=== PATIENT | male | born 1940 | race Hispanic/Latino ===

== ENCOUNTER 2017-09-27 08:06 | Day surgery (SDC) | payer OTHER ==
[~2017-09-27] VITALS: Ht 162.6 cm; Wt 68.8 kg
[~2017-09-27 08:06] MED LIST: SODIUM CHLORIDE 0.9% 1000ML 1,000 ML IV ONE
[2017-09-27 08:49] LABS: BASOPHILS % (AUTO) 0.8 % (0.0-5.0); EOSINOPHILS % (AUTO) 2.2 % (0.0-8.0); HEMATOCRIT 24.2 % (42-54); MEAN CORPUSCULAR HGB CONC 35.6 g/dL (32.0-36.0); MEAN CORPUSCULAR VOLUME 89.8 fL (79-99); MONOCYTES % (AUTO) 7.7 % (3.0-13.0); NEUTROPHILS % (AUTO) 67.3 % (40.0-77.0); PLATELET COUNT (AUTO) 157 K/uL (130-400); RED CELL DISTRIBUTION WIDTH 16.3 % (11.0-15.5)
[2017-09-27 09:07] VITALS: BP 135/64
[2017-09-27] MEDS ORDERED: PANT40TA25 PO (09:45)
[2017-09-27] MEDS ORDERED: VALS160T28 PO (09:45)
[2017-09-27] MEDS ORDERED: RENEXA PO (09:45)
[2017-09-27] MEDS ORDERED: ISOS30TA6 PO (09:45)
[2017-09-27] MEDS ORDERED: METO-391 PO (09:45)
[2017-09-27] MEDS ORDERED: AMLO5TAB2 PO (09:45)
[2017-09-27] MEDS ORDERED: AMIO100T4 PO (09:45)
[2017-09-27] MEDS ORDERED: PROPOFOL 10 MG/ML 20ML VIAL IV ONE (09:48)
== END 2017-09-27 11:00 | disposition home or self-care (01) ==
LOC: ENDO 08:06 → DAH 08:06 → ENDO 11:00
PROVIDERS: ATTEND Internal Medicine Gastroenterology
DX: K29.70 Gastritis, unspecified, without bleeding (principal); K92.1 Melena; D62 Acute posthemorrhagic anemia; K21.9 Gastro-esophageal reflux disease without esophagitis; I10 Essential (primary) hypertension; I25.10 Atherosclerotic heart disease of native coronary artery without angina pectoris; I48.91 Unspecified atrial fibrillation; E78.5 Hyperlipidemia, unspecified; N40.0 Benign prostatic hyperplasia without lower urinary tract symptoms; Z95.0 Presence of cardiac pacemaker; Z88.8 Allergy status to other drugs, medicaments and biological substances; Z88.1 Allergy status to other antibiotic agents; Z98.890 Other specified postprocedural states
CPT/HCPCS: 36415; 43235; 85025; 93005; A4606; J2704; J7030

== ENCOUNTER 2017-09-28 09:58 | Day surgery (SDC) | payer OTHER ==
[~2017-09-28] VITALS: Ht 160 cm; Wt 70.3 kg
[~2017-09-28 09:58] MED LIST changes: +AMIO100T4 PO; +AMLO5TAB2 PO; +ISOS30TA6 PO; +METO-391 PO; +PANT40TA25 PO; +RENEXA PO; +VALS160T28 PO
[2017-09-28 10:02] VITALS: BP 117/65
[2017-09-28] MEDS ORDERED: PROPOFOL 10 MG/ML 20ML VIAL IV ONE ×2 (10:45→11:11)
[2017-09-28 10:51] LABS: EOSINOPHILS % (AUTO) 1.7 % (0.0-8.0); HEMATOCRIT 24.2 % (42-54); LYMPHOCYTES % (AUTO) 18.5 % (21.0-51.0); MEAN CORPUSCULAR HEMOGLOBIN 30.5 pg (27.0-33.0); MEAN CORPUSCULAR HGB CONC 33.9 g/dL (32.0-36.0); MEAN CORPUSCULAR VOLUME 90.1 fL (79-99); NEUTROPHILS % (AUTO) 71.8 % (40.0-77.0); PLATELET COUNT (AUTO) 150 K/uL (130-400); RED BLOOD CELL COUNT(AUTO) 2.69 MIL/uL (4.50-6.20); RED CELL DISTRIBUTION WIDTH 16.3 % (11.0-15.5); WHITE BLOOD COUNT (AUTO) 4.7 K/uL (4.8-10.8)
[2017-09-28] MEDS ORDERED: PHENYLEPHRINE HCL 10 MG/ML 1ML VIAL IV ONE (10:56)
== END 2017-09-28 12:42 | disposition home or self-care (01) ==
LOC: DAH 09:58 → ENDO 09:58
PROVIDERS: ATTEND Internal Medicine Gastroenterology
DX: K92.1 Melena (principal); K57.30 Diverticulosis of large intestine without perforation or abscess without bleeding; K92.2 Gastrointestinal hemorrhage, unspecified; K31.811 Angiodysplasia of stomach and duodenum with bleeding; K21.9 Gastro-esophageal reflux disease without esophagitis; I10 Essential (primary) hypertension; I25.10 Atherosclerotic heart disease of native coronary artery without angina pectoris; I48.91 Unspecified atrial fibrillation; D64.9 Anemia, unspecified; Z98.890 Other specified postprocedural states; Z95.1 Presence of aortocoronary bypass graft
CPT/HCPCS: 36415; 45378; 44366; 85025; A4606; J2370; J2704 ×2; J7030

== ENCOUNTER 2017-09-29 17:03 | Observation (INO) | payer OTHER ==
[~2017-09-29] VITALS: Ht 162.6 cm; Wt 66.5 kg
[~2017-09-29 17:03] MED LIST changes: -SODIUM CHLORIDE 0.9% 1000ML 1,000 ML IV ONE
[2017-09-29 18:03] LABS: BASOPHILS % (AUTO) 0.6 % (0.0-5.0); EOSINOPHILS % (AUTO) 1.5 % (0.0-8.0); HEMATOCRIT 22.8 % (42-54); LYMPHOCYTES % (AUTO) 21.5 % (21.0-51.0); MEAN CORPUSCULAR HEMOGLOBIN 32.2 pg (27.0-33.0); MEAN CORPUSCULAR HGB CONC 36.3 g/dL (32.0-36.0); MEAN CORPUSCULAR VOLUME 88.9 fL (79-99); MONOCYTES % (AUTO) 8.6 % (3.0-13.0); NEUTROPHILS % (AUTO) 67.8 % (40.0-77.0); NUCLEATED RED BLOOD CELLS 0.1 % (0.0-0.19); PLATELET COUNT (AUTO) 158 K/uL (130-400); RED BLOOD CELL COUNT(AUTO) 2.57 MIL/uL (4.50-6.20); RED CELL DISTRIBUTION WIDTH 16.6 % (11.0-15.5)
[2017-09-29] MEDS ORDERED: 1/2 NORMAL SALINE 1,000 ML IV ONE (21:05)
[2017-09-29 21:29] VITALS: BP 129/76
[2017-09-30] VITALS (21 sets, daily range): BP systolic 109–144; BP diastolic 58–78
[2017-09-30 03:14] LABS: HEMATOCRIT 22.1 % (42-54); MEAN CORPUSCULAR HEMOGLOBIN 29.9 pg (27.0-33.0); MEAN CORPUSCULAR HGB CONC 34.2 g/dL (32.0-36.0); MEAN CORPUSCULAR VOLUME 87.6 fL (79-99); PLATELET COUNT (AUTO) 135 K/uL (130-400); RED BLOOD CELL COUNT(AUTO) 2.52 MIL/uL (4.50-6.20); WHITE BLOOD COUNT (AUTO) 5.2 K/uL (4.8-10.8)
[2017-09-30 03:39] LABS: CREATININE 1.5 mg/dL (0.5-1.5); POTASSIUM 3.8 mmol/L (3.5-5.1)
[2017-09-30] MEDS ORDERED: SODIUM CHLORIDE 0.9% 500ML 500 ML IV SCH (03:45)
[2017-09-30] MEDS ORDERED: SODIUM CHLORIDE 0.9% 500ML 500 ML IV ONE (03:48)
[2017-09-30] MEDS ORDERED: PROPOFOL 10 MG/ML 20ML VIAL IV ONE (10:55)
== END 2017-09-30 16:05 | disposition home or self-care (01) ==
LOC: EDH 17:03 → EDHIP 17:26 → 3AH 20:33
PROVIDERS: ADMIT Internal Medicine; ATTEND Internal Medicine
DX: K55.21 Angiodysplasia of colon with hemorrhage (principal); K31.819 Angiodysplasia of stomach and duodenum without bleeding; K92.1 Melena; D64.9 Anemia, unspecified; I13.0 Hypertensive heart and chronic kidney disease with heart failure and stage 1 through stage 4 chronic kidney disease, or unspecified chronic kidney disease; I50.9 Heart failure, unspecified; N18.9 Chronic kidney disease, unspecified; I48.91 Unspecified atrial fibrillation; I25.10 Atherosclerotic heart disease of native coronary artery without angina pectoris; E78.5 Hyperlipidemia, unspecified; Z79.01 Long term (current) use of anticoagulants; Z87.11 Personal history of peptic ulcer disease; Z95.1 Presence of aortocoronary bypass graft
CPT/HCPCS: 36415 ×2; 36430; 44360; 80048; 85025; 85027; 86850; 86900; 86901; 86922; 99285; G0378 ×23; J2704; J7040; P9016 ×2

== ENCOUNTER 2017-12-24 07:32 | Emergency (ER) | payer OTHER ==
[~2017-12-24 07:32] MED LIST changes: -VALS160T28 PO; +VALS160T29 PO
[2017-12-24] MEDS ORDERED: IPRATROPIUM/ALBUTEROL SULFATE 3 ML SOLUTION IH ONE (08:12)
[2017-12-24 08:37] LABS: BASOPHILS % (AUTO) 0.6 % (0.0-5.0); EOSINOPHILS % (AUTO) 2.7 % (0.0-8.0); HEMATOCRIT 33.9 % (42-54); LYMPHOCYTES % (AUTO) 11.4 % (21.0-51.0); MEAN CORPUSCULAR HEMOGLOBIN 27.9 pg (27.0-33.0); MEAN CORPUSCULAR HGB CONC 34.8 g/dL (32.0-36.0); MEAN CORPUSCULAR VOLUME 80.1 fL (79-99); NEUTROPHILS % (AUTO) 78.3 % (40.0-77.0); PLATELET COUNT (AUTO) 174 K/uL (130-400); RED BLOOD CELL COUNT(AUTO) 4.23 MIL/uL (4.50-6.20); RED CELL DISTRIBUTION WIDTH 16.1 % (11.0-15.5); WHITE BLOOD COUNT (AUTO) 10.7 K/uL (4.8-10.8)
[2017-12-24 08:38] LABS: CREATININE 1.5 mg/dL (0.5-1.5); POTASSIUM 3.7 mmol/L (3.5-5.1)
[2017-12-24 08:52] LABS: CREATINE KINASE MB 2.3 ng/mL (0.5-3.6)
[2017-12-24] MEDS ORDERED: BENZONATATE 100 MG CAPSULE PO ONE (09:27)
== END 2017-12-24 10:20 | disposition home or self-care (01) ==
LOC: EDH 07:32
DX: J01.90 Acute sinusitis, unspecified (principal); R05 Cough; I48.91 Unspecified atrial fibrillation; I25.10 Atherosclerotic heart disease of native coronary artery without angina pectoris; N40.0 Benign prostatic hyperplasia without lower urinary tract symptoms; E78.5 Hyperlipidemia, unspecified; Z88.8 Allergy status to other drugs, medicaments and biological substances; Z79.82 Long term (current) use of aspirin; Z79.899 Other long term (current) drug therapy; Z95.1 Presence of aortocoronary bypass graft
CPT/HCPCS: 36415; 71046; 80048; 82550; 82553; 84484; 85025; 87804; 93005; 94640

== ENCOUNTER → 2019-02-13 | Outpatient (CLI) | payer OTHER ==
[~2019-02-13] MED LIST changes: -AMLO5TAB2 PO; +AMLO5TAB9 PO
== END | disposition home or self-care (01) ==
LOC: SHCH 11:37
PROVIDERS: ATTEND Internal Medicine Cardiovascular Disease
DX: I25.10 Atherosclerotic heart disease of native coronary artery without angina pectoris (principal); I73.9 Peripheral vascular disease, unspecified
CPT/HCPCS: 93925

== ENCOUNTER 2019-04-20 05:51 | Day surgery (SDC) | payer OTHER ==
[2019-04-18 12:39] VITALS: BP 118/70
[2019-04-18 12:50] LABS: BASOPHILS % (AUTO) 0.6 % (0.0-5.0); EOSINOPHILS % (AUTO) 1.7 % (0.0-8.0); HEMATOCRIT 33.7 % (42-54); LYMPHOCYTES % (AUTO) 23.3 % (21.0-51.0); MEAN CORPUSCULAR HEMOGLOBIN 27.3 pg (27.0-33.0); MEAN CORPUSCULAR VOLUME 82.8 fL (79-99); MONOCYTES % (AUTO) 8.4 % (3.0-13.0); PLATELET COUNT (AUTO) 158 K/uL (130-400); RED BLOOD CELL COUNT(AUTO) 4.08 MIL/uL (4.50-6.20); RED CELL DISTRIBUTION WIDTH 15.2 % (11.0-15.5); WHITE BLOOD COUNT (AUTO) 6.8 K/uL (4.8-10.8)
[2019-04-18 12:57] LABS: CREATININE 1.7 mg/dL (0.5-1.5); POTASSIUM 4.2 mmol/L (3.5-5.1)
[2019-04-18 13:00] LABS: INR 1.13 (0.85-1.15); PARTIAL THROMBOPLASTIN TIME 36.2 SEC (26.3-35.5); PROTHROMBIN TIME 11.8 SEC (9.6-11.6)
--- NOTE | 2019-04-19 11:59 | NUR ---
LABS ABNORMAL LABS REPORTED TO DR. OLSON NO FURTHER ORDERS GIVEN.
[~2019-04-20] VITALS: Ht 166.4 cm; Wt 69.9 kg
[2019-04-20] VITALS (9 sets, daily range): BP systolic 105–140; BP diastolic 59–78
[~2019-04-20 05:51] MED LIST changes: -AMIO100T4 PO; +AMIO200T5 PO; +ASPI-555 PO; -METO-391 PO; +METO50TA18 PO; +OMEP-50 PO; -PANT40TA25 PO; +RANO500T3 PO; -RENEXA PO; +RIVA20TA PO
[2019-04-20] MEDS ORDERED: CEFAZOLIN SODIUM 1 GM VIAL ONE (07:26)
[2019-04-20] MEDS ORDERED: LIDOCAINE HCL 1% MDV 50ML VIAL ONE (07:26)
[2019-04-20] MEDS ORDERED: BUPIVACAINE/PF 0.25% 50ML VIAL IJ ONE (07:26)
[2019-04-20] MEDS ORDERED: MIDAZOLAM HCL 1 MG/ML 2ML VIAL ONE ×2 (07:56→08:26)
[2019-04-20] MEDS ORDERED: MEPERIDINE-PF 25 MG/ML SYG ONE ×2 (07:56→08:26)
[2019-04-20] MEDS ORDERED: SODIUM CHLORIDE 0.9% 1000ML 1,000 ML IV SCH (08:00)
[2019-04-20] MEDS ORDERED: CEFAZOLIN SODIUM 1 GM VIAL IVP ONE (08:00)
--- NOTE | 2019-04-20 11:38 | NUR ---
PT. SITE TO THE RIGHT WHERE PM DRESSING IS LOCATED HAD OOZING AND PRESSURE WAS HELD FOR 10 MIN BY EMILIANA BREWER/LIVIER.
== END 2019-04-20 13:30 | disposition home or self-care (01) ==
LOC: DAH 05:51
PROVIDERS: ATTEND Internal Medicine Cardiovascular Disease
DX: Z45.010 Encounter for checking and testing of cardiac pacemaker pulse generator [battery] (principal); I48.0 Paroxysmal atrial fibrillation; I25.10 Atherosclerotic heart disease of native coronary artery without angina pectoris; I44.2 Atrioventricular block, complete; Z88.8 Allergy status to other drugs, medicaments and biological substances; Z79.01 Long term (current) use of anticoagulants; Z79.899 Other long term (current) drug therapy; Z79.82 Long term (current) use of aspirin; Z95.5 Presence of coronary angioplasty implant and graft; Z82.49 Family history of ischemic heart disease and other diseases of the circulatory system; Z83.3 Family history of diabetes mellitus
CPT/HCPCS: 33228; 36415; 80048; 85025; 85610; 85730; A4606; C1785; J0690; J2175 ×2; J2250 ×2; J3490 ×2; 99156; 99157

== ENCOUNTER 2019-10-28 13:44 | Emergency (ER) | payer OTHER ==
[~2019-10-28 13:44] MED LIST changes: -OMEP-50 PO; +OMEP20CA12 PO
[2019-10-28] MEDS ORDERED: IOHEXOL 350 MG/ML 100ML INFUS..BTL IV ONE (14:07)
[2019-10-28 14:26] LABS: BASOPHILS % (AUTO) 0.4 % (0.0-5.0); EOSINOPHILS % (AUTO) 1.2 % (0.0-8.0); HEMATOCRIT 32.2 % (42-54); MEAN CORPUSCULAR HEMOGLOBIN 24.4 pg (27.0-33.0); MEAN CORPUSCULAR HGB CONC 31.1 g/dL (32.0-36.0); MEAN CORPUSCULAR VOLUME 78.5 fL (79-99); NEUTROPHILS % (AUTO) 71.1 % (40.0-77.0); PLATELET COUNT (AUTO) 136 K/uL (130-400); RED CELL DISTRIBUTION WIDTH 15.6 % (11.0-15.5); WHITE BLOOD COUNT (AUTO) 7.4 K/uL (4.8-10.8)
[2019-10-28 14:31] LABS: CREATININE 1.7 mg/dL (0.5-1.5)
[2019-10-28 14:33] LABS: INR 1.09 (0.85-1.15); PROTHROMBIN TIME 11.4 SEC (9.6-11.6)
[2019-10-28 14:36] LABS: ALBUMIN 3.2 g/dL (3.5-5.0); BILIRUBIN,TOTAL 0.3 mg/dL (0.2-1.0)
== END 2019-10-28 19:40 | disposition home or self-care (01) ==
LOC: EDH 13:44
DX: S13.9XXA Sprain of joints and ligaments of unspecified parts of neck, initial encounter (principal); S00.33XA Contusion of nose, initial encounter; S50.11XA Contusion of right forearm, initial encounter; N18.9 Chronic kidney disease, unspecified; I50.9 Heart failure, unspecified; E78.5 Hyperlipidemia, unspecified; I48.91 Unspecified atrial fibrillation; I25.10 Atherosclerotic heart disease of native coronary artery without angina pectoris; W18.39XA Other fall on same level, initial encounter; Y93.01 Activity, walking, marching and hiking; Y92.89 Other specified places as the place of occurrence of the external cause; Y99.8 Other external cause status
CPT/HCPCS: 36415; 70450; 71260; 72125; 73060; 73090 ×2; 73130; 74177; 80053; 82550; 84484; 85025; 85610; 85730; 93005; 99285; Q9967

== ENCOUNTER → 2022-02-10 | Outpatient (CLI) | payer OTHER ==
[~2022-02-10] MED LIST changes: -AMIO200T5 PO; +AMIO200T68 PO; +AMLO-257 PO; -AMLO5TAB9 PO; -ASPI-555 PO; +ASPI-556 PO; -ISOS30TA6 PO; +ISOS30TA92 PO
[2022-02-10 13:01] LABS: CREATININE 1.3 mg/dL (0.5-1.5); DIGOXIN 0.63 ng/mL (0.50-2.00); POTASSIUM 4.3 mmol/L (3.5-5.1)
== END | disposition home or self-care (01) ==
LOC: LAB 10:25
PROVIDERS: ATTEND Physician Assistant
DX: I48.20 Chronic atrial fibrillation, unspecified (principal)
CPT/HCPCS: 36415; 80048; 80162

== ENCOUNTER → 2022-04-19 | Outpatient (CLI) | payer OTHER ==
[2022-04-19 12:40] LABS: CREATININE 1.6 mg/dL (0.5-1.5); DIGOXIN 0.33 ng/mL (0.50-2.00); POTASSIUM 4.3 mmol/L (3.5-5.1)
== END | disposition home or self-care (01) ==
LOC: LAB 11:40
PROVIDERS: ATTEND Physician Assistant
DX: I48.0 Paroxysmal atrial fibrillation (principal); I25.10 Atherosclerotic heart disease of native coronary artery without angina pectoris
CPT/HCPCS: 36415; 80048; 80162

== ENCOUNTER 2023-06-29 08:32 | Emergency (ER) | payer OTHER ==
[~2023-06-29] VITALS: Ht 162.6 cm; Wt 65.8 kg
[~2023-06-29 08:32] MED LIST changes: +CLOP75TA32 PO; +ISOS20TA85 PO; +RIVA15TA PO
[2023-06-29 09:00] LABS: BASOPHILS # (AUTO) 0.04 K/uL (0.00-0.20); BASOPHILS % (AUTO) 0.4 % (0.0-5.0); EOSINOPHILS # (AUTO) 0.24 K/uL (0.00-0.70); EOSINOPHILS % (AUTO) 2.4 % (0.0-8.0); HEMATOCRIT 33.5 % (42-54); IMMATURE GRANULOCYTE ABSOLUTE 0.03 K/uL (0-1); LYMPHOCYTES # (AUTO) 1.4 K/uL (1.0-4.8); LYMPHOCYTES % (AUTO) 13.3 % (21.0-51.0); MEAN CORPUSCULAR HEMOGLOBIN 27.4 pg (27.0-33.0); MEAN CORPUSCULAR HGB CONC 31.3 g/dL (32.0-36.0); MEAN CORPUSCULAR VOLUME 87.5 fL (79-99); MONOCYTES # (AUTO) 0.8 K/uL (0.1-1.0); MONOCYTES % (AUTO) 7.8 % (3.0-13.0); NEUTROPHILS # (AUTO) 7.7 K/uL (1.8-7.7); NEUTROPHILS % (AUTO) 75.8 % (40.0-77.0); PLATELET COUNT (AUTO) 139 K/uL (130-400); RED BLOOD CELL COUNT(AUTO) 3.83 MIL/uL (4.50-6.20); RED CELL DISTRIBUTION WIDTH 15.2 % (11.0-15.5); WHITE BLOOD COUNT (AUTO) 10.2 K/uL (4.8-10.8)
[2023-06-29 09:08] LABS: CREATININE 1.9 mg/dL (0.5-1.5); POTASSIUM 3.7 mmol/L (3.5-5.1)
[2023-06-29 09:13] LABS: BILIRUBIN,TOTAL 0.5 mg/dL (0.2-1.0); TOTAL PROTEIN, SERUM 7.3 g/dL (6.0-8.3)
[2023-06-29 09:24] LABS: SARS-CoV-2, RNA, NAAT NEGATIVE SARS CoV-2 (NEGATIVE)
[2023-06-29 09:29] LABS: INFLUENZA TYPE A Negative For Type A (NEGATIVE); INFLUENZA TYPE B Negative For Type B (NEGATIVE)
[2023-06-29 10:00] VITALS: BP 152/83; PULSE 69; RESP 21; O2SAT 95
[2023-06-29] MEDS ORDERED: PHEN118S62 MM (10:20)
[2023-06-29] MEDS ORDERED: ACET237L PO (10:22)
== END 2023-06-29 10:53 | disposition home or self-care (01) ==
LOC: EDH 08:32
DX: J06.9 Acute upper respiratory infection, unspecified (principal); R05.9 Cough, unspecified; I13.0 Hypertensive heart and chronic kidney disease with heart failure and stage 1 through stage 4 chronic kidney disease, or unspecified chronic kidney disease; E11.22 Type 2 diabetes mellitus with diabetic chronic kidney disease; N18.30 Chronic kidney disease, stage 3 unspecified; I50.9 Heart failure, unspecified; I25.10 Atherosclerotic heart disease of native coronary artery without angina pectoris; I48.91 Unspecified atrial fibrillation; E78.00 Pure hypercholesterolemia, unspecified; Z79.01 Long term (current) use of anticoagulants; Z79.02 Long term (current) use of antithrombotics/antiplatelets; Z79.82 Long term (current) use of aspirin; Z79.899 Other long term (current) drug therapy; Z88.1 Allergy status to other antibiotic agents; Z88.8 Allergy status to other drugs, medicaments and biological substances; Z95.810 Presence of automatic (implantable) cardiac defibrillator; Z20.822 Contact with and (suspected) exposure to COVID-19
CPT/HCPCS: 99284; 71045; 87635; 84484; 80053; 85025; 87804 ×2; 36415; C9803

== ENCOUNTER 2023-11-24 23:18 | Observation (INO) | payer OTHER ==
[~2023-11-24] VITALS: Ht 172.7 cm; Wt 66.1 kg
[~2023-11-24 23:18] MED LIST changes: +ACET237L PO; +PHEN118S62 MM
[2023-11-25] MEDS: ASPIRIN 325MG TAB PO ONE (00:20)
[2023-11-25] MEDS: NITROGLYCERIN 1GM OINT 1 INCH/1GM TD ONE (00:21)
[2023-11-25 00:44] LABS: BASOPHILS # (AUTO) 0.03 K/uL (0.00-0.20); BASOPHILS % (AUTO) 0.5 % (0.0-5.0); EOSINOPHILS # (AUTO) 0.23 K/uL (0.00-0.70); EOSINOPHILS % (AUTO) 3.7 % (0.0-8.0); HEMATOCRIT 30.9 % (42-54); IMMATURE GRANULOCYTE ABSOLUTE 0.01 K/uL (0-1); LYMPHOCYTES # (AUTO) 1.8 K/uL (1.0-4.8); LYMPHOCYTES % (AUTO) 28.3 % (21.0-51.0); MEAN CORPUSCULAR HEMOGLOBIN 27.2 pg (27.0-33.0); MEAN CORPUSCULAR VOLUME 82.4 fL (79-99); MONOCYTES # (AUTO) 0.6 K/uL (0.1-1.0); NEUTROPHILS # (AUTO) 3.7 K/uL (1.8-7.7); NEUTROPHILS % (AUTO) 58.3 % (40.0-77.0); PLATELET COUNT (AUTO) 141 K/uL (130-400); RED BLOOD CELL COUNT(AUTO) 3.75 MIL/uL (4.50-6.20); WHITE BLOOD COUNT (AUTO) 6.3 K/uL (4.8-10.8)
[2023-11-25 01:03] LABS: CREATININE 1.3 mg/dL (0.5-1.5); POTASSIUM 4.6 mmol/L (3.5-5.1)
[2023-11-25] MEDS ORDERED: DEXTROSE 5 %-0.45 % NACL 1,000 ML IV SCH (05:00)
[2023-11-25] MEDS ORDERED: MORPHINE 4 MG SYG IM PRN (05:00)
[2023-11-25] MEDS: ONDANSETRON 4MG INJ IVP PRN (05:19)
[2023-11-25] MEDS: MORPHINE 4 MG SYG IVP PRN (05:23)
[2023-11-25 11:30] VITALS: BP 142/93; PULSE 77; RESP 18; O2SAT 98
[2023-11-25] MEDS ORDERED: ISOS20TA85 PO (12:44)
[2023-11-25 16:00] VITALS: BP 143/90; PULSE 69; RESP 18
[2023-11-25 19:45] VITALS: BP 132/80; PULSE 70; RESP 17
[2023-11-25 20:00] VITALS: O2SAT 94
[2023-11-25 23:43] VITALS: BP 133/80; PULSE 74; RESP 17
[2023-11-26] VITALS (7 sets, daily range): BP systolic 103–136; BP diastolic 61–92; PULSE 67–78; RESP 17–19; O2SAT 93–96
[2023-11-26] MEDS: REGADENOSON 0.4 MG/5 ML PF SYG IVP SCH (13:54)
[2023-11-26] MEDS: ISOSORBIDE MONONITRATE 20 MG TABLET PO SCH (19:55)
[2023-11-26] MEDS: METOPROLOL TARTRATE 50 MG TAB PO SCH (19:56)
[2023-11-26] MEDS: AMIODARONE 200 MG TABLET PO SCH (19:56)
[2023-11-27 02:56] VITALS: BP 120/71; PULSE 70; RESP 18
[2023-11-27 07:54] VITALS: BP 123/84; PULSE 69; RESP 16
[2023-11-27 08:00] VITALS: O2SAT 97
[2023-11-27] MEDS ORDERED: VALSARTAN 160 MG PO SCH (09:00)
[2023-11-27] MEDS: RIVAROXABAN 15 MG TABLET PO SCH (09:00)
[2023-11-27] MEDS: LOSARTAN 100 MG TABLET PO SCH (09:00)
[2023-11-27] MEDS: CLOPIDOGREL 75MG TAB PO SCH (09:00)
[2023-11-27 11:46] VITALS: BP 100/67; PULSE 70; RESP 18
[2023-11-27] MEDS: RANOLAZINE 500 MG TAB.SR.12H PO SCH (12:50)
== END 2023-11-27 13:30 | disposition home or self-care (01) ==
LOC: EDH 23:18 → EDHIP 11-25 04:31 → 3DH 11-25 10:46
PROVIDERS: ADMIT Internal Medicine; ATTEND Internal Medicine
DX: I25.110 Atherosclerotic heart disease of native coronary artery with unstable angina pectoris (principal); I48.0 Paroxysmal atrial fibrillation; K21.9 Gastro-esophageal reflux disease without esophagitis; C61 Malignant neoplasm of prostate; I16.1 Hypertensive emergency; J06.9 Acute upper respiratory infection, unspecified; I13.0 Hypertensive heart and chronic kidney disease with heart failure and stage 1 through stage 4 chronic kidney disease, or unspecified chronic kidney disease; N18.30 Chronic kidney disease, stage 3 unspecified; I50.9 Heart failure, unspecified; I48.91 Unspecified atrial fibrillation; E78.5 Hyperlipidemia, unspecified; D64.9 Anemia, unspecified; B97.89 Other viral agents as the cause of diseases classified elsewhere; Z79.01 Long term (current) use of anticoagulants; Z88.5 Allergy status to narcotic agent; Z95.0 Presence of cardiac pacemaker; Z88.8 Allergy status to other drugs, medicaments and biological substances; Z79.82 Long term (current) use of aspirin; Z95.5 Presence of coronary angioplasty implant and graft
CPT/HCPCS: 71045; 93005; 96374; 96375; 99285; 82550 ×3; 84484 ×4; 80048; 85025; 36415; 93306; 93017; 78452; G0378 ×52; J2405; J2270; J2785; A9500 ×2

== ENCOUNTER 2023-12-21 03:37 | Emergency (ER) | payer OTHER ==
[~2023-12-21 03:37] MED LIST changes: -ACET237L PO; -AMLO-257 PO; -ASPI-556 PO; -ISOS30TA92 PO; -OMEP20CA12 PO; -PHEN118S62 MM; -RANO500T3 PO; -RIVA20TA PO
[2023-12-21] MEDS ORDERED: AMIO100T4 PO (04:05)
[2023-12-21] MEDS ORDERED: ISOS30TA92 PO (04:05)
[2023-12-21] MEDS ORDERED: AMLO-257 PO (04:05)
[2023-12-21] MEDS ORDERED: RIVA15TA PO (04:05)
[2023-12-21] MEDS ORDERED: CLOP-31 PO (04:05)
[2023-12-21 04:08] LABS: BASOPHILS # (AUTO) 0.04 K/uL (0.00-0.20); BASOPHILS % (AUTO) 0.6 % (0.0-5.0); EOSINOPHILS % (AUTO) 4.3 % (0.0-8.0); HEMATOCRIT 31.5 % (42-54); IMMATURE GRANULOCYTE ABSOLUTE 0.02 K/uL (0-1); LYMPHOCYTES # (AUTO) 1.7 K/uL (1.0-4.8); LYMPHOCYTES % (AUTO) 24.8 % (21.0-51.0); MEAN CORPUSCULAR HEMOGLOBIN 26.9 pg (27.0-33.0); MEAN CORPUSCULAR HGB CONC 32.4 g/dL (32.0-36.0); MEAN CORPUSCULAR VOLUME 83.1 fL (79-99); MONOCYTES # (AUTO) 0.6 K/uL (0.1-1.0); MONOCYTES % (AUTO) 8.1 % (3.0-13.0); NEUTROPHILS # (AUTO) 4.4 K/uL (1.8-7.7); NEUTROPHILS % (AUTO) 61.9 % (40.0-77.0); PLATELET COUNT (AUTO) 143 K/uL (130-400); RED BLOOD CELL COUNT(AUTO) 3.79 MIL/uL (4.50-6.20)
[2023-12-21 04:20] LABS: CREATININE 1.6 mg/dL (0.5-1.3); POTASSIUM 3.9 mmol/L (3.5-5.1)
[2023-12-21 04:23] LABS: INR 1.13 (0.85-1.15); PROTHROMBIN TIME 13.2 SEC (9.6-11.6)
[2023-12-21 04:24] LABS: BILIRUBIN,TOTAL 0.4 mg/dL (0.2-1.0); MAGNESIUM 2.3 mg/dL (1.80-2.40); PARTIAL THROMBOPLASTIN TIME 41.6 SEC (26.3-35.5); TOTAL PROTEIN, SERUM 6.7 g/dL (6.0-8.3)
[2023-12-21] MEDS: DICYCLOMINE HCL 10 MG/5 ML ML PO ONE (04:36)
[2023-12-21] MEDS: MAG/ALUM/SIMETH 30 ML UDCUP PO ONE (04:36)
[2023-12-21] MEDS: LIDOCAINE HCL 2% VISCOUS 15 ML UDCUP PO ONE (04:36)
[2023-12-21] MEDS: ACETAMINOPHEN 325 MG TAB PO ONE (04:37)
[2023-12-21] MEDS: NITROGLYCERIN 1GM OINT 1 INCH/1GM TD ONE (04:37)
[2023-12-21] MEDS: PANTOPRAZOLE 40 MG/VIAL IVP ONE (04:51)
[2023-12-21 04:52] LABS: B-TYPE NATRIURETIC PEPTIDE 463 pg/mL (0-100)
[2023-12-21 07:00] VITALS: BP 136/79; PULSE 66; RESP 18; O2SAT 96
[2023-12-23] MEDS ORDERED: RIVA15TA PO (03:12)
[2023-12-23] MEDS ORDERED: ISOS40TA PO (03:12)
[2023-12-23] MEDS ORDERED: AMIO200T68 PO (03:12)
== END 2023-12-21 07:05 | disposition home or self-care (01) ==
LOC: EDH 03:37
DX: R07.89 Other chest pain (principal); R06.02 Shortness of breath; I11.0 Hypertensive heart disease with heart failure; I50.9 Heart failure, unspecified; E78.00 Pure hypercholesterolemia, unspecified; I48.91 Unspecified atrial fibrillation; J44.9 Chronic obstructive pulmonary disease, unspecified; Z79.899 Other long term (current) drug therapy; Z88.1 Allergy status to other antibiotic agents; Z88.8 Allergy status to other drugs, medicaments and biological substances
CPT/HCPCS: 99284; 96374; 71045; 83735; 84484 ×2; 80053; 83880; 85025; 85610; 85730; 36415; 93005; C9113

== ENCOUNTER 2024-02-27 06:10 | Emergency (ER) | payer OTHER ==
[~2024-02-27] VITALS: Ht 160 cm; Wt 65.8 kg
[~2024-02-27 06:10] MED LIST changes: +AMLO-257 PO; +CLOP-31 PO; -CLOP75TA32 PO; -ISOS20TA85 PO; +ISOS40TA PO
[2024-02-27 06:46] LABS: BASOPHILS # (AUTO) 0.03 K/uL (0.00-0.20); BASOPHILS % (AUTO) 0.5 % (0.0-5.0); IMMATURE GRANULOCYTE ABSOLUTE 0.01 K/uL (0-1); LYMPHOCYTES # (AUTO) 1.4 K/uL (1.0-4.8); LYMPHOCYTES % (AUTO) 23.8 % (21.0-51.0); MEAN CORPUSCULAR HEMOGLOBIN 25.6 pg (27.0-33.0); MEAN CORPUSCULAR HGB CONC 32.2 g/dL (32.0-36.0); MEAN CORPUSCULAR VOLUME 79.4 fL (79-99); MONOCYTES # (AUTO) 0.6 K/uL (0.1-1.0); MONOCYTES % (AUTO) 9.8 % (3.0-13.0); NEUTROPHILS # (AUTO) 3.7 K/uL (1.8-7.7); NEUTROPHILS % (AUTO) 60.7 % (40.0-77.0); PLATELET COUNT (AUTO) 134 K/uL (130-400)
[2024-02-27 07:02] LABS: INR 1.13 (0.85-1.15); PROTHROMBIN TIME 13.2 SEC (9.6-11.6)
[2024-02-27 07:03] LABS: CREATININE 2.2 mg/dL (0.5-1.3); POTASSIUM 3.7 mmol/L (3.5-5.1)
[2024-02-27 07:04] LABS: PARTIAL THROMBOPLASTIN TIME 34.8 SEC (26.3-35.5)
[2024-02-27 07:57] VITALS: BP 149/84; PULSE 70; RESP 17; O2SAT 97
[2024-02-27] MEDS ORDERED: DICL20GE TP (09:19)
== END 2024-02-27 09:56 | disposition home or self-care (01) ==
LOC: EDH 06:10
DX: M25.512 Pain in left shoulder (principal); I48.91 Unspecified atrial fibrillation; I11.0 Hypertensive heart disease with heart failure; I50.9 Heart failure, unspecified; E78.00 Pure hypercholesterolemia, unspecified; J44.9 Chronic obstructive pulmonary disease, unspecified
CPT/HCPCS: 36415; 71045; 80048; 83605; 83690; 84145; 84484; 85025; 85610; 85730; 93005

== ENCOUNTER 2024-03-05 05:46 | Emergency (ER) | payer OTHER ==
[~2024-03-05] VITALS: Ht 172.7 cm; Wt 66.7 kg
[~2024-03-05 05:46] MED LIST changes: +DICL20GE TP
[2024-03-05 06:23] LABS: BASOPHILS # (AUTO) 0.04 K/uL (0.00-0.20); BASOPHILS % (AUTO) 0.6 % (0.0-5.0); EOSINOPHILS # (AUTO) 0.23 K/uL (0.00-0.70); EOSINOPHILS % (AUTO) 3.7 % (0.0-8.0); HEMATOCRIT 28.8 % (42-54); IMMATURE GRANULOCYTE ABSOLUTE 0.01 K/uL (0-1); LYMPHOCYTES # (AUTO) 1.5 K/uL (1.0-4.8); LYMPHOCYTES % (AUTO) 23.7 % (21.0-51.0); MEAN CORPUSCULAR HEMOGLOBIN 24.8 pg (27.0-33.0); MEAN CORPUSCULAR HGB CONC 31.6 g/dL (32.0-36.0); MEAN CORPUSCULAR VOLUME 78.5 fL (79-99); MONOCYTES # (AUTO) 0.6 K/uL (0.1-1.0); MONOCYTES % (AUTO) 9.3 % (3.0-13.0); NEUTROPHILS # (AUTO) 3.9 K/uL (1.8-7.7); NEUTROPHILS % (AUTO) 62.5 % (40.0-77.0); PLATELET COUNT (AUTO) 153 K/uL (130-400); RED BLOOD CELL COUNT(AUTO) 3.67 MIL/uL (4.50-6.20); RED CELL DISTRIBUTION WIDTH 15.9 % (11.0-15.5); WHITE BLOOD COUNT (AUTO) 6.2 K/uL (4.8-10.8)
[2024-03-05 06:37] LABS: SARS-CoV-2, RNA, NAAT NEGATIVE SARS CoV-2 (NEGATIVE)
[2024-03-05 06:42] LABS: INFLUENZA TYPE A Negative For Type A (NEGATIVE); INFLUENZA TYPE B Negative For Type B (NEGATIVE)
[2024-03-05 07:17] LABS: B-TYPE NATRIURETIC PEPTIDE 294 pg/mL (0-100)
[2024-03-05 07:42] LABS: CREATININE 1.4 mg/dL (0.5-1.3); POTASSIUM 4.4 mmol/L (3.5-5.1)
[2024-03-05 09:06] LABS: APPEARANCE,URINE CLEAR (CLEAR); BILIRUBIN,URINE NEGATIVE (NEGATIVE); COLOR,URINE COLORLESS (YELLOW); GLUCOSE, URINE (UA) NEGATIVE (NEGATIVE); KETONES,URINE NEGATIVE (NEGATIVE); LEUKOCYTE ESTERASE ,URINE NEGATIVE Leu/uL (NEGATIVE); NITRATE,URINE NEGATIVE (NEGATIVE); PROTEIN,URINE 20 mg/dL (NEGATIVE); UROBILINOGEN,URINE 0.2 mg/dL (0.2-1.0)
[2024-03-05 09:09] LABS: ADD UA MICROSCOPIC YES
[2024-03-05 09:10] LABS: WBC,URINE 0-1 /HPF (0-1)
[2024-03-05 12:37] VITALS: BP 155/88; PULSE 68; RESP 18; O2SAT 96
[2024-03-05] MEDS ORDERED: LACT10SO85 PO (12:52)
== END 2024-03-05 13:25 | disposition home or self-care (01) ==
LOC: EDH 05:46
DX: K57.30 Diverticulosis of large intestine without perforation or abscess without bleeding (principal); N28.1 Cyst of kidney, acquired; K59.00 Constipation, unspecified; I48.91 Unspecified atrial fibrillation; I11.0 Hypertensive heart disease with heart failure; I50.9 Heart failure, unspecified; E78.00 Pure hypercholesterolemia, unspecified; Z20.822 Contact with and (suspected) exposure to COVID-19
CPT/HCPCS: 36415; 71045; 74176; 80048; 81001; 82550; 83880; 84484; 85025; 87635; 87804; 93005

== ENCOUNTER 2024-12-05 05:44 | Emergency (ER) | payer OTHER ==
[~2024-12-05 05:44] MED LIST changes: -AMIO200T68 PO; +APIX2.5T PO; +ASPI-1443 PO; +ATOR40TA71 PO; -CLOP-31 PO; -DICL20GE TP; +METO100T14 PO; +PANT40TA54 PO; -RIVA15TA PO; -VALS160T29 PO
--- NOTE | 2024-12-05 05:55 | ERN ---
ED Note History of Present Illness Stated Complaint: RUQ ABDOMINAL PAIN Chief Complaint: Abdominal Pain Time Seen by MD: 05:45 Dictation: This is an 84-year-old male who came via EMS with abdominal pain in the right lower abd and right side of the abdomen since yesterday. He stated that the pain was mostly in the right upper and flank area radiating to the back. No nausea vomitings diarrhea hematemesis or melena. No constipation. The pain was so intense that he could not sleep and he called EMS to come for evaluation Temperature 98.1 pulse 70 respirations 16 blood pressure 152/74 with a pulse oximetry of 94% on room air His chronic medical problems include atrial fibrillation on apixaban, CAD status post stents, AICD pacemaker, CHF, hypertension, hypercholesterolemia, diverticul osis and history of COPD, renal cysts Allergies: Coded Allergies: cosyntropin (Unverified Allergy, Unknown, 10/28/19) metronidazole (Unverified Allergy, Unknown, 12/23/23) DIARRHEA prednisone (Unverified Allergy, Unknown, RASH, 09/27/17) Home Meds Reported Medications Metoprolol Tartrate (Metoprolol Tartrate) 100 Mg Tablet, 100 MG PO HS, TAB 10/17/24 Aspirin (Aspirin EC) 81 Mg Tablet.dr, 81 MG PO NOON, TAB 10/17/24 Atorvastatin Calcium (Atorvastatin Calcium) 40 Mg Tablet, 40 MG PO NOON, TAB 10/17/24 Pantoprazole Sodium (Pantoprazole Sodium) 40 Mg Tablet.dr, 40 MG PO DAILY, TAB 10/17/24 Apixaban (Eliquis) 2.5 Mg Tablet, 2.5 MG PO BID, TAB 10/17/24 Amlodipine Besylate (Amlodipine Besylate) 5 Mg Tablet, 5 MG PO DAILY, TAB 12/23/23 Isosorbide Dinitrate (Isosorbide Dinitrate) 40 Mg Tablet, 40 MG PO BID, TAB 12/23/23 Metoprolol Tartrate (Metoprolol Tartrate) 50 Mg Tablet, 50 MG PO DAILY, TAB 12/23/23 Past Medical History Past Medical History: A-Fib, CHF, COPD, Diverticulosis, High Cholesterol, Hypertension, Other Additional Past Medical Hx: PACEMAKER Surgical History: Pacer/AICD, Other, None Surgical History Other: CARDIAC STENTS , PROSTATE, PACEMAKER MEDTRONICS Social History: Negative, Lives with family RN Note Reviewed/Agreed w/PFSH: Yes Review of System Dictation Constitutional: Negative for fever,chills, and weight loss Eyes: Negative for injury, pain,redness, and discharge ENT: Negative for injury,pain or swelling Cardiovascular: Negative for chest pain, palpitations, and edema Respiratory: Negative for shortness of breath, cough, and wheezing, Abdomen/GI: Positive for abdominal pain in the right upper quadrant and flank area, nausea, vomiting, diarrhea, and constipation Back: Negative for injury and pain : Negative for injury, bleeding and discharge MS/Extremity: Negative for injury and deformity Skin: Negative for rash, and discoloration Neuro: Negative for headache, weakness, numbness, tingling, and seizure Psych: Negative for suicide ideation, homicidal ideation, and hallucinations Initial Vital Sign VS Vital Signs Date Time Temp Pulse Resp B/P (MAP) Pulse Ox O2 Delivery O2 Flow Rate FiO2 12/05/24 05:45 98.1 70 16 152/74 94 Room Air 0 12/05/24 06:56 21 Physical Exam Dictation General: awake, alert, NAD uncomfortable Head/Face: Normocephalic, atraumatic Eyes: PERRL, EOMI, vision at baseline ENT: oral cavity clear, TMs clear, no signs of infection Neck: Trachea midline, supple, no nuchal rigidity Cardiovascular: RRR, normal S1/S2, No MRGs, no JVD Respiratory: CTAB, no respiratory distress, No rales or wheezes Abdomen: Soft, tenderness in the right upper quadrant flank area, non-distended, normal bowel sounds, no guarding or rebound. Skin: Warm, dry, normal turgor, no rash MS/Extremity: Pulses equal, no cyanosis, neurovascular intact, FROM Neuro: COAx4, GCS 15, strength 5/5, CN 2-12 intact, normal cerebellar exam, normal gait, Psych: Normal behavior, mood, and affect normal Extremities-trace edema without any palpable cords, Homans sign is negative Results (Laboratory/Radiology) Laboratory/Radiology Laboratory Tests Test 12/05/24 05:54 12/05/24 06:07 Urine Color LIGHT-YELLOW (YELLOW) Urine Appearance CLEAR (CLEAR) Urine pH 5.5 (5.0-8.0) Urine Specific [place] 1.007 (1.001-1.031) Urine Protein 70 mg/dL (NEGATIVE) H Urine Glucose (UA) NEGATIVE mg/dL (NEGATIVE) Urine Ketones NEGATIVE mg/dL (NEGATIVE) Urine Occult Blood SMALL (NEGATIVE) H Urine Nitrate NEGATIVE (NEGATIVE) Urine Bilirubin NEGATIVE mg/dL (NEGATIVE) Urine Urobilinogen 0.2 mg/dL (0.2-1.0) Urine Leukocyte Esterase NEGATIVE Al/uL Urine RBC 0-1 /HPF (0-1) Urine WBC 2-5 /HPF (0-1) H Urine Bacteria None /HPF (None Seen) White Blood Count 9.4 K/uL (4.8-10.8) Red Blood Count 3.25 MIL/uL (4.50-6.20) L Hemoglobin 9.1 g/dL (14.0-18.0) L Hematocrit 28.3 % (42-54) L Mean Corpuscular Volume 87.1 fL (79-99) Mean Corpuscular Hemoglobin 28.0 pg (27.0-33.0) Mean Corpuscular Hemoglobin Concent 32.2 g/dL (32.0-36.0) Red Cell Distribution Width 15.7 % (11.0-15.5) H Platelet Count 152 K/uL (130-400) Mean Platelet Volume 10.5 fL (7.5-10.5) Immature Granulocyte % (Auto) 0.5 % (0-1) Neutrophils (%) (Auto) 69.1 % (40.0-77.0) Lymphocytes (%) (Auto) 17.4 % (21.0-51.0) L Monocytes (%) (Auto) 7.6 % (3.0-13.0) Eosinophils (%) (Auto) 5.0 % (0.0-8.0) Basophils (%) (Auto) 0.4 % (0.0-5.0) Neutrophils # (Auto) 6.5 K/uL (1.8-7.7) Lymphocytes # (Auto) 1.6 K/uL (1.0-4.8) Monocytes # (Auto) 0.7 K/uL (0.1-1.0) Eosinophils # (Auto) 0.47 K/uL (0.00-0.70) Basophils # (Auto) 0.04 K/uL (0.00-0.20) Absolute Immature Granulocyte (auto 0.05 K/uL (0-1) Nucleated Red Blood Cells 0.0 % (0.0-0.19) Sodium Level 141 mmol/L (136-145) Potassium Level 3.7 mmol/L (3.5-5.1) Chloride Level 106 mmol/L (101-111) Carbon Dioxide Level 24 mmol/L (21-32) Blood Urea Nitrogen 21 mg/dL (7-18) H Creatinine 1.9 mg/dL (0.5-1.3) H Glomerular Filtration Rate Calc 34 mL/min (>90) Random Glucose 95 mg/dL (70-105) Total Calcium 8.5 mg/dL (8.5-10.1) Total Bilirubin 0.7 mg/dL (0.2-1.0) Aspartate Amino Transf (AST/SGOT) 29 U/L (10-37) Alanine Aminotransferase (ALT/SGPT) 37 U/L (12-78) Alkaline Phosphatase 129 U/L (50-136) Total Protein 6.9 g/dL (6.0-8.3) Albumin 3.2 g/dL (3.5-5.0) L Lipase 102 U/L (16-77) H Labs Reviewed?: Yes EKG Comment: Twelve lead EKG done on 12/05/2024 at 6:10 a.m. showed a heart rate of 69, QRS 159 P wave is hard to discern, QT/QTC 481/517 Impression atrial fibrillation with a ventricular paced rhythm slightly prolonged QT interval. Interpreted by ER MD Dr. Trujillo Ultrasound Comment: Echocardiogram Conclusion LVEF is 50-55%. There is normal LV segmental wall motion. No pericardial effusion. DICTATED BY: TOMA LLOYD MD DATE: 12/25/23 1847 ELECTRONICALLY SIGNED BY: TOMA LLOYD MD DATE: 12/26/[address] Scan Comment: CT abdomen and pelvis- ED Course ED Course Orders Procedure Category Date Status Time Cbc With Differential LAB 12/05/24 Complete 05:47 Comprehensive LAB 12/05/24 Complete Metabolic Panel 05:47 Urinalysis Profile LAB 12/05/24 Complete 05:47 12 Lead Ekg Tracing- EKG 12/05/24 Complete Technical 05:47 0.9%Nacl 1000ml (Ns PHA 12/05/24 In Process 1000ml) 06:00 Chest 1vw RAD 12/05/24 Taken 05:47 Lipase LAB 12/05/24 Complete 05:47 Ct Abdomen/Pelvis W/O CT 12/05/24 Taken Contrast 05:55 Hydromorphone 0.5mg PHA 12/05/24 Complete Syg (Dilaudid 0.5mg 06:30 Ondansetron 4mg Inj PHA 12/05/24 Complete (Zofran 4mg Inj) 06:30 Current Medications Medications (Trade) Dose Ordered Sig/Autumn Route PRN Reason Start Time Stop Time Status Last Admin Dose Admin Hydromorphone HCl (DiLAUDid 0.5MG INJ) 0.5 mg ONCE ONCE IVP 12/05/24 06:30 12/05/24 06:31 DC 12/05/24 06:12 Ondansetron HCl (zoFRAN 4MG INJ) 4 mg ONCE ONCE IVP 12/05/24 06:30 12/05/24 06:31 DC 12/05/24 06:12 Sodium Chloride 1,000 ml @ 125 mls/hr ONCE ONCE IV 12/05/24 06:00 12/05/24 13:59 12/05/24 06:12 Vital Signs Date Time Temp Pulse Resp B/P (MAP) Pulse Ox O2 Delivery O2 Flow Rate FiO2 12/05/24 08:03 98.2 69 12 134/70 94 Room Air* 0 21 12/05/24 06:56 69 18 130/68 95 Room Air* 0 12/05/24 05:45 98.1 70 16 152/74 94 Room Air 0 We will perform diagnostic labs, advanced imaging and administer medications according to the patient's complaint. Once the results are available, will review and personally interpreted the labs to rule out any acute life- threatening emergency the trach require immediate intervention and treatment. I will then re-evaluate the patient after treatment and diagnostic exams have return to determine whether the patient requires any further testing, can safely be discharged home or need further admission to hospital for additional treatment and evaluation. 7:02 a.m. CBC showed a white count of 9.4 hemoglobin of 9.1 platelets 152. His hemoglobin was 10.5 on 10/16/2024 BNP 7 is significant for a BUN and creatinine of 21 and 1.9, lipase is 102. Urinalysis was unremarkable. Chest x-ray chronic interstitial disease changes with some bronchiectasis. CT scan of the abdomen and pelvis results are pending at this time. Medical Decision Making [facility] MDM: Differential diagnosis: Cholecystitis, gastritis, peptic ulcer disease, divert iculosis, hemorrhage into renal cyst, constipation, diverticulitis Medical management and examination interpretation discussions were had by me with other qualified healthcare professionals as indicated for the patient's care. Patient is a 84-year-old gentleman coming in to be evaluated for lower abdominal pain. CT did not disclose acute findings. Patient does have a history of bilateral renal cyst. Patient states that he no longer has a abdominal pain patient will be discharged in stable condition. Problem List Problem List: (1) Right sided abdominal pain (2) Diverticulosis (3) Bilateral renal cysts (4) Constipation DX & DISP Disposition: Discharge Decision to Admit Time: 05:54 Departure Impression: Primary Impression: Bilateral renal cysts Additional Impressions: Constipation, End stage renal disease Condition: Stable Additional Instructions: Patient was informed of all the diagnostic labs and procedures conducted in the emergency room today and demonstrated understanding of the results. I personally reviewed and interpreted all the diagnostic exams performed in the ER today. The patient will be admitted to the hospital for further treatment and evaluation. Disposition-admit to facility Condition-stable/guarded Course-uncertain at this time Pain status-decreased Assessment-exam unchanged Admission Certification- I certify that the patients status is appropriate and is based on my best clinical judgment and the patient's condition as documented in the medical records Referrals: YAZAN BEEBE MD (PCP) DEVORAH TRUJILLO MD Dec 05, 2024 05:55 JUAN OCAMPO MD Dec 05, 2024 10:11
[2024-12-05 06:10] LABS: APPEARANCE,URINE CLEAR (CLEAR); BILIRUBIN,URINE NEGATIVE (NEGATIVE); COLOR,URINE LIGHT-YELLOW (YELLOW); GLUCOSE, URINE (UA) NEGATIVE (NEGATIVE); KETONES,URINE NEGATIVE (NEGATIVE); LEUKOCYTE ESTERASE ,URINE NEGATIVE Leu/uL (NEGATIVE); NITRATE,URINE NEGATIVE (NEGATIVE); OCCULT BLOOD,URINE SMALL (NEGATIVE); PH,URINE 5.5 (5.0-8.0); PROTEIN,URINE 70 mg/dL (NEGATIVE); UROBILINOGEN,URINE 0.2 mg/dL (0.2-1.0)
[2024-12-05 06:11] LABS: ADD UA MICROSCOPIC YES
[2024-12-05 06:12] LABS: RBC,URINE 0-1 /HPF (0-1)
[2024-12-05] MEDS: 0.9%NACL 1000ML 1,000 ML IV ONE (06:12)
[2024-12-05] MEDS: hydroMORPHone 0.5 MG SYG (0.5MG/0.5ML) IVP ONE (06:12)
[2024-12-05] MEDS: ondanSETRON 4MG INJ IVP ONE (06:12)
[2024-12-05 06:18] LABS: BASOPHILS # (AUTO) 0.04 K/uL (0.00-0.20); BASOPHILS % (AUTO) 0.4 % (0.0-5.0); EOSINOPHILS # (AUTO) 0.47 K/uL (0.00-0.70); HEMATOCRIT 28.3 % (42-54); IMMATURE GRANULOCYTE ABSOLUTE 0.05 K/uL (0-1); LYMPHOCYTES # (AUTO) 1.6 K/uL (1.0-4.8); LYMPHOCYTES % (AUTO) 17.4 % (21.0-51.0); MEAN CORPUSCULAR HGB CONC 32.2 g/dL (32.0-36.0); MEAN CORPUSCULAR VOLUME 87.1 fL (79-99); MONOCYTES # (AUTO) 0.7 K/uL (0.1-1.0); MONOCYTES % (AUTO) 7.6 % (3.0-13.0); NEUTROPHILS # (AUTO) 6.5 K/uL (1.8-7.7); NEUTROPHILS % (AUTO) 69.1 % (40.0-77.0); PLATELET COUNT (AUTO) 152 K/uL (130-400); RED BLOOD CELL COUNT(AUTO) 3.25 MIL/uL (4.50-6.20); RED CELL DISTRIBUTION WIDTH 15.7 % (11.0-15.5); WHITE BLOOD COUNT (AUTO) 9.4 K/uL (4.8-10.8)
--- NOTE | 2024-12-05 06:35 | NUR ---
PATIENT AT CT SCAN AT THIS TIME.
[2024-12-05 06:38] LABS: ALBUMIN 3.2 g/dL (3.5-5.0); BILIRUBIN,TOTAL 0.7 mg/dL (0.2-1.0); CREATININE 1.9 mg/dL (0.5-1.3); POTASSIUM 3.7 mmol/L (3.5-5.1); TOTAL PROTEIN, SERUM 6.9 g/dL (6.0-8.3)
--- NOTE | 2024-12-05 06:52 | EKG ---
[facility] Test Date: 2024-12-05 Test Time: 06:10:19 Pat Name: CHRISTINA KNAPP Department: ED Room: Gender: M Cylindrical Mixer: [id number] : [id number] Requested By: DEVORAH CAMILO Order Number: [id number] Reading MD: Fredo Huynh Measurements Intervals Theresa Rate: 69 P: 0 DE: 0 QRS: -71 QRSD: 159 T: 81 QT: 481 QTc: 517 Interpretive Statements Atiral flutter and ventricular-paced rhythm Compared to ECG 10/17/2024 10:35:22 No significant changes Electronically Signed On 12-05-2024 13:26:25 CDT by Fredo Huynh Please click the below link to view image of tracing.
[2024-12-05 10:10] VITALS: BP 127/68; PULSE 67; RESP 14; TEMP 97.8; O2SAT 95
--- NOTE | 2024-12-05 10:15 | HMCIMG ---
CT ABDOMEN WITHOUT CONTRAST. CT PELVIS WITHOUT CONTRAST. INDICATION: Right upper abdominal pain TECHNIQUE: Routine transaxial imaging using 5 mm slice thickness through the abdomen and pelvis without the administration of IV contrast. Thin slice reconstructions are also provided. Coronal and sagittal reformatted images acquired for interpretation. CT was performed with one or more of the following dose reduction techniques: Automated exposure control, adjustment of the mA and/or kV according to patient size, or use of iterative reconstruction technique. COMPARISON: 03/05/2024 FINDINGS: ON NONCONTRAST IMAGING: ABDOMEN: Heart size is normal. Visible lung bases are clear. No abnormal renal calcifications, hydronephrosis, perinephric inflammation, or proximal hydroureter detected. A few simple bilateral renal cysts, largest on the right measuring up to 6.3 cm. The liver is normal in size and smooth in contour without biliary duct dilation. The spleen is normal in size and attenuation. The gallbladder appears normal. The pancreas appears normal without pancreatic duct dilation. The adrenal glands appear normal. No significant abdominal, retrocrural or retroperitoneal adenopathy noted. No evidence for intra-abdominal free air or organized fluid collection. Mild calcific plaque is noted along the abdominal aortic and iliac vessel reagan without aneurysmal dilation. PELVIS: No abnormal calcifications within the urinary bladder or distal ureters. No evidence for free air or organized pelvic fluid collection. No significant pelvic adenopathy detected. Visualized small and large bowel loops appear unremarkable. Terminal ileum appears unremarkable. The appendix appears normal. Slightly enlarged prostate enlargement with TURP defect. Bilateral L5 pars defect with grade 1 slip. Mild thoracolumbar spondylosis includes mild lumbar dextroscoliosis. IMPRESSION: No evidence for any acute intra-abdominal or pelvic process. Additional minor findings, postsurgical changes, and pertinent negatives as reported.
--- NOTE | 2024-12-05 10:19 | HMCIMG ---
PORTABLE CHEST RADIOGRAPH INDICATION: RUQ pain COMPARISON: 10/17/2024 FINDINGS: Right sided pacer and continuous leads remain in customary position. Heart size is normal. Mild calcific plaque is present along the aortic arch reagan. The pulmonary vascularity and mariella appear normal. No abnormal pulmonary parenchymal opacity or consolidation identified. Linear scarring at both lung bases. No significant pleural effusion noted. No pneumothorax detected. IMPRESSION: No radiographic evidence for any acute cardiopulmonary process.
== END 2024-12-05 10:28 | disposition home or self-care (01) ==
LOC: EDH 05:44
DX: N28.1 Cyst of kidney, acquired (principal); K59.00 Constipation, unspecified; I13.2 Hypertensive heart and chronic kidney disease with heart failure and with stage 5 chronic kidney disease, or end stage renal disease; N18.6 End stage renal disease; I48.91 Unspecified atrial fibrillation; E78.00 Pure hypercholesterolemia, unspecified; I50.9 Heart failure, unspecified; J44.9 Chronic obstructive pulmonary disease, unspecified; Z79.01 Long term (current) use of anticoagulants; Z79.899 Other long term (current) drug therapy; Z88.1 Allergy status to other antibiotic agents; Z88.8 Allergy status to other drugs, medicaments and biological substances; Z95.5 Presence of coronary angioplasty implant and graft; Z99.2 Dependence on renal dialysis; Z95.810 Presence of automatic (implantable) cardiac defibrillator
CPT/HCPCS: 99285; 74176; 96374; 71045; 96361; 96375; 80053; 83690; 85025; 81001; 36415; 93005; J1171; J7030; J2405

== ENCOUNTER → 2025-05-15 | Outpatient (CLI) | payer OTHER ==
[~2025-05-15] MED LIST changes: +AEC81 PO; -AMLO-257 PO; -ASPI-1443 PO; +ATOR40TA69 PO; -ATOR40TA71 PO; +CLOP-31 PO; +FERR-72 PO; +ISOS30TA11 PO; -ISOS40TA PO; -METO100T14 PO; +METO25TA6 PO; -METO50TA18 PO; +MULT-1203 PO; +NIFE-40 PO; +NITR0.4T50 SL
--- NOTE | 2025-05-28 08:14 | HMCIMG ---
Right BREAST ULTRASOUND: CLINICAL HISTORY: Mastodynia Finding: Real-time examination of the [right/left] breast demonstrates homogeneous echotexture throughout the breast . Right retro-nipple region there is a hypoechoic lesion seen measuring 1.5 x 0.5 x 1.5 cm. There is right axillary lymph node measuring 1.8 x 0.7 x 1.8 cm. There is a second lymph node measuring 1.2 x 0.8 x 1.0 cm. IMPRESSION: Right retro-nipple region is a hypoechoic lesion. I would recommend diagnostic breast mammogram and this is also amenable for ultrasound-guided biopsy for histological sampling.. FINAL ASSESSMENT: ACR: BI-RAD -0. Incomplete: need additional imaging evaluation. Management: Recall for additional imaging and/or comparison with prior examination(s). Likelihood of Cancer: N/A
== END | disposition home or self-care (01) ==
LOC: RAH 14:37
PROVIDERS: ATTEND Internal Medicine
DX: N64.89 Other specified disorders of breast (principal); N64.4 Mastodynia
CPT/HCPCS: 76641

== ENCOUNTER 2025-07-14 08:14 | Observation (INO) | payer OTHER ==
[~2025-07-14] VITALS: Ht 160 cm; Wt 74.8 kg
--- NOTE | 2025-07-14 08:46 | ERN ---
General Chief Complaint: Chest Pain Stated Complaint: CHEST PAIN Time Seen by MD: 08:17 Source: patient History of Present Illness Initial Comments PATIENT IS A AN 85-YEAR-OLD MALE COMING IN COMPLAINING OF CHEST PAIN EARLIER IN THE MORNING. THE MOMENT IN HIS EVALUATION HE STATES HE DOES NOT HAVE ANY CHEST PAIN. 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 BRIZUELA. Allergies: Coded Allergies: codeine (Unverified Allergy, Unknown, 01/02/25) cosyntropin (Unverified Allergy, Unknown, 10/28/19) metronidazole (Unverified Allergy, Unknown, 12/23/23) DIARRHEA prednisone (Unverified Allergy, Unknown, RASH, 09/27/17) Home Meds Active Scripts Clopidogrel Bisulfate (Plavix) 75 Mg Tablet, 75 MG PO DAILY for 90 Days, #90 TAB Prov:ALEM VINCENT AGACNP 02/19/25 Nifedipine (Nifedipine ER) 30 Mg Tab.er.24, 60 MG PO DAILY for 30 Days, #30 TAB Prov:ALEM VINCENT AGACNP 02/19/25 Atorvastatin Calcium (LIPITOR) 40 Mg Tablet, 40 MG PO HS, #90 TAB Prov:ALEM VINCENT AGACNP 02/19/25 Aspirin (ASPIRIN 81 MG ECTAB) 81 Mg Ectab, 81 MG PO DAILY, #90 TAB.EC 1 Refill Prov:ALEM VINCENT AGACNP 02/19/25 Metoprolol Tartrate (Metoprolol Tartrate) 25 Mg Tablet, 100 MG PO BID for 30 Days, #60 TAB Prov:ALEM VINCENT AGACNP 02/19/25 Reported Medications Multivitamin (Multi Vitamin Daily) 1 Each Tablet, 1 TAB PO HS for 30 Days, #30 TAB 0 Refills 02/17/25 Ferrous Sulfate (Ferrous Sulfate) 325 Mg (65 Mg Iron) Tablet, 1 TAB PO HS for 30 Days, #30 TAB 0 Refills 02/17/25 Nitroglycerin (Nitroglycerin) 0.4 Mg Tab.subl, 1 TAB SL AD for chest pain, #25 TAB 0 Refills 1st sign of attack; may repeat every 5 mins; if pain persists after 3 in 15 min, medical attention is recommended 01/02/25 Isosorbide Dinitrate (Isosorbide Dinitrate) 30 Mg Tablet, 30 MG PO BID, TAB 01/02/25 Pantoprazole Sodium (Pantoprazole Sodium) 40 Mg Tablet.dr, 40 MG PO DAILY, TAB 10/17/24 Apixaban (Eliquis) 2.5 Mg Tablet, 2.5 MG PO BID, TAB 10/17/24 Past Medical History Past Medical History: A-Fib, CAD, COPD, GERD, High Cholesterol, Hypertension, OR Medical History Other: PACEMAKER Past Surgical History: Pacer/AICD Surgical History Other: CARDIAC STENTS , PROSTATE, PACEMAKER MEDTRONICS Social History Social History: Negative, Lives with family ROS Dictation CONSTITUTIONAL: NO CHILLS, NO FEVER, NO WEAKNESS, NO DIAPHORESIS, NO MALAISE. HEAD/FACE: NO SIGNS OF TRAUMA. EENT: NO EYE PAIN, NO BLURRED VISION, NO TEARING, NO DOUBLE VISION, NO EAR PAIN, NO EAR DISCHARGE, NO NOSE PAIN, NO NASAL CONGESTION, NO THROAT PAIN, NO THROAT SWELLING, NO MOUTH PAIN. RESPIRATORY: NO COUGH, NO ORTHOPNEA, NO SOB, NO STRIDOR, NO WHEEZING. CARDIOVASCULAR: NO CHEST PAIN, NO EDEMA, NO PALPITATIONS, NO SYNCOPE. GASTROINTESTINAL/ABDOMINAL: NO ABDOMINAL PAIN, NO CONSTIPATION, NO DIARRHEA, NO NAUSEA, NO VOMITING. GENITOURINARY: NO ABNORMAL DISCHARGE, NO DYSURIA, NO FREQUENT URINATION, NO HEMATURIA. NO COMPLAINTS OF PAIN IN THE GENITALS. MUSCULOSKELETAL: NO BACK PAIN, NO GOUT, NO JOINT PAIN, NO JOINT SWELLING, NO MUSCLE PAIN, NO MUSCLE STIFFNESS, NO NECK PAIN. INTEGUMENTARY: NO CHANGE IN COLOR, NO CHANGE IN HAIR/NAILS, NO DRYNESS, NO LESION, NO LUMPS, NO RASH. NEUROLOGICAL/PSYCH: NO ANXIETY, NOT DEPRESSED, NO EMOTIONAL PROBLEM, NO HEADACHE, NO NUMBNESS, NO PRE-EXISTING DEFICIT, NO HISTORY OF SEIZURES, NO TREMORS, NO WEAKNESS. HEMATOLOGIC/LYMPHATIC: NOT ANEMIC, NO HISTORY OF BLOOD CLOTS, NO APPARENT BLEEDING, NO BRUISING, GLANDS NOT SWOLLEN. ALL SYSTEMS NEGATIVE, EXCEPT NOTED. Physical Exam Physical Exam Dictation VITAL SIGNS: REVIEWED. GENERAL APPEARANCE: ALERT, ORIENTED X3, NO ACUTE DISTRESS, OBESE. HEAD AND FACE: NON-TRAUMATIC. EYES: PERRL, PINK CONJUNCTIVAS, EYELID NO TRAUMA, ANTERIOR CHAMBER CLEAR. EARS: PINNAS INTACT AND NO SIGNS OF TRAUMA OR ERYTHEMA. EAR CANALS CLEAR AND NO DISCHARGE. TMS NO ERYTHEMA. NOSE: NO DISCHARGE, NO BLEEDING. OROPHARYNX: MOUTH NORMAL, TEETH NO CARIES, TONGUE PINK. PHARYNX CLEAR, NO ERYTHEMA. TONSILS NO EXUDATES, NO ABSCESSES NOTED. MUCOUS MEMBRANE MOIST. NECK: SUPPLE, NON-TENDER, NO THYROMEGALY, NO MASSES, NO JVD, NO BRUITS. BREAST: DEFERRED. CHEST: NO TENDERNESS, NO CREPITUS, NO PARADOXICAL MOVEMENT, NO RETRACTIONS. LUNGS: CLEAR, WELL-VENTILATED, SYMMETRIC, NO RALES, NO WHEEZING, NO RHONCHI, NO STRIDOR, GOOD BREATH SOUNDS BILATERALLY. HEART: REGULAR RATE, REGULAR RHYTHM, NO MURMUR, NO GALLOPS. VASCULAR: NO PERIPHERAL EDEMA. ABDOMEN: SOFT, POSITIVE BOWEL SOUNDS, NONDISTENDED, NO GUARDING, NONTENDER, NO REBOUND, NO MASSES NO HEPATOMEGALY, NO SPLENOMEGALY, NO BRITT'S SIGN, NO HERNIAS. RECTAL: DEFERRED. GENITAL: DEFERRED. NEUROLOGICAL: NORMAL SPEECH, GROSS MOTOR FUNCTION INTACT, GROSS SENSORY FUNCTION INTACT. MUSCULOSKELETAL: NECK NONTENDER, FULL RANGE OF MOTION, BACK NONTENDER, FULL RANGE OF MOTION. EXTREMITIES: NONTENDER, FULL RANGE OF MOTION. SKIN: COLOR PINK, DRY, NO TURGOR, NO RASH, NO LACERATIONS, NO ABRASIONS, NO CONTUSIONS. LYMPHATICS: DEFERRED. Results Laboratory and Microbiology Lab and Micro Result Laboratory Tests Test 07/14/25 09:16 07/14/25 10:06 White Blood Count 6.4 K/uL (4.8-10.8) Red Blood Count 3.77 MIL/uL (4.50-6.20) L Hemoglobin 10.9 g/dL (14.0-18.0) L Hematocrit 31.5 % (42-54) L Mean Corpuscular Volume 83.6 fL (79-99) Mean Corpuscular Hemoglobin 28.9 pg (27.0-33.0) Mean Corpuscular Hemoglobin Concent 34.6 g/dL (32.0-36.0) Red Cell Distribution Width 14.6 % (11.0-15.5) Platelet Count 125 K/uL (130-400) L Mean Platelet Volume 11.1 fL (7.5-10.5) H Immature Granulocyte % (Auto) 0.2 % (0-1) Neutrophils (%) (Auto) 62.5 % (40.0-77.0) Lymphocytes (%) (Auto) 25.6 % (21.0-51.0) Monocytes (%) (Auto) 8.1 % (3.0-13.0) Eosinophils (%) (Auto) 3.0 % (0.0-8.0) Basophils (%) (Auto) 0.6 % (0.0-5.0) Neutrophils # (Auto) 4.0 K/uL (1.8-7.7) Lymphocytes # (Auto) 1.6 K/uL (1.0-4.8) Monocytes # (Auto) 0.5 K/uL (0.1-1.0) Eosinophils # (Auto) 0.19 K/uL (0.00-0.70) Basophils # (Auto) 0.04 K/uL (0.00-0.20) Absolute Immature Granulocyte (auto 0.01 K/uL (0-1) Nucleated Red Blood Cells 0.0 % (0.0-0.19) Sodium Level 147 mmol/L (136-145) H Potassium Level 3.9 mmol/L (3.5-5.1) Chloride Level 111 mmol/L (101-111) Carbon Dioxide Level 29 mmol/L (21-32) Blood Urea Nitrogen 36 mg/dL (7-18) H Creatinine 2.1 mg/dL (0.5-1.3) H Glomerular Filtration Rate Calc 30 mL/min (>90) Random Glucose 106 mg/dL (70-105) H Total Calcium 8.8 mg/dL (8.5-10.1) Magnesium Level 2.60 mg/dL (1.80-2.40) H Troponin I High Sensitivity 31 ng/L (4-75) 26 ng/L (4-75) Labs Reviewed?: Yes EKG/XRAY/US/CT/MRI EKG Comment 07/14/2025 TIME 8:36 A.M. VENTRICULAR RATE [address] WAVE ELEVATION OR DEPRESSION X-RAY Comment Signed PATIENT: CHRISTINA KNAPP MR#: [id number] : 1940 SEX: M AGE: 85 LOCATION: [facility] ORDER DT: 10817 STATUS: REG ER REPORT#: [id number] SERVICE 6 REASON: CP ORDERING PHYSICIAN: JUAN OCAMPO MD PROCEDURE: CXR1VW - CHEST 1VW EXAM: CR Chest, 1 View. CLINICAL HISTORY: CP COMPARISON: None provided. FINDINGS: LUNGS: The lungs show no infiltrate or other acute finding. PLEURAL SPACES: No evidence of pleural effusion or pneumothorax. MEDIASTINUM: Pacemaker leads overlie the right atrium and both ventricles. The cardiomediastinal silhouette is within normal limits. BONES: No aggressive appearing osseous lesion seen. IMPRESSION: No acute cardiopulmonary pathology is evident. /[place] DICTATED BY: RON ST Jr., MD DATE: 07/14/251103 ELECTRONICALLY SIGNED BY: RON ST Jr., MD DATE: 07/14/251103 [facility] MDM: DIFFERENTIAL DIAGNOSIS: ATRIAL FIBRILLATION, HYPONATREMIA, WORSENING KIDNEY FUNCTION RATIONALE: TESTS CONSIDERED AND ORDERED SECONDARY TO SHARED DECISION MAKING INCLUDE: PREVIOUS OUTSIDE RECORDS REVIEWED: OLD ER VISITS. RISK OF COMPLICATION AND/OR MORBIDITY OR MORTALITY OF PATIENT MANAGEMENT: NONE MEDICATIONS-PER MEDICATION RECONCILIATION NEED FOR HOSPITALIZATION: PATIENT DOES MEET CRITERIA FOR HOSPITALIZATION. NEED FOR EMERGENCY MAJOR/MINOR SURGERY: NO THERE ARE NO SOCIAL CONCERNS WITH THIS PATIENT. PRESCRIPTION DRUG MANAGEMENT PRESCRIPTIONS WILL INCLUDE SYMPTOMATIC CARE PATIENT'S PRIOR EXTERNAL MEDICAL RECORDS FROM OTHER ER VISITS WERE REVIEWED BY ME INDICATED. PRIOR TESTING AND RESULTS FROM PREVIOUS VISITS WERE REVIEWED. PRIOR TESTS WERE TAKEN INTO ACCOUNT WITH MEDICAL DECISION MAKING AND RESOURCE UTILIZATION, INDEPENDENT HISTORIAN/HISTORIANS WERE USED TO OBTAIN COMPLETE MEDICAL HISTORY. I INDEPENDENTLY INTERPRETED THE TEST THAT WERE PERFORMED, RESULTS WERE REVIEWED BY ME AND CONSIDERED FINDINGS ON RADIOLOGY IF ORDERED. MEDICAL MANAGEMENT AND EXAMINATION INTERPRETATION DISCUSSIONS WERE HAD BY ME WITH OTHER QUALIFIED HEALTHCARE PROFESSIONALS INDICATED FOR THE PATIENT'S CARE. HE WILL BE ADMITTED UNDER THE CARE OF . ED Course Orders Procedure Category Date Status Time Cbc With Differential LAB 07/14/25 Complete 08:17 Chest 1vw RAD 07/14/25 Resulted 08:17 12 Lead Ekg Tracing- EKG 07/14/25 Complete Technical 08:17 Magnesium LAB 07/14/25 Complete 08:17 Troponin I High LAB 07/14/25 Complete Sensitivity 08:17 Basic Metabolic Panel LAB 07/14/25 Complete 08:17 Troponin I High LAB 07/14/25 Complete Sensitivity 09:59 B-Type Natriuretic LAB 07/14/25 Transmitted Peptide 10:38 Vital Signs Date Time Temp Pulse Resp B/P (MAP) Pulse Ox O2 Delivery O2 Flow Rate FiO2 07/14/25 09:30 97.9 95 17 141/79 98 Room Air* 0 21 07/14/25 08:27 97.9 69 15 134/75 98 Room Air 0 DX & DISP Disposition: Inpatient Decision to Admit Time: 10:41 Departure Impression: Primary Impression: EULOGIO (acute kidney injury) Additional Impressions: Hypernatremia, Chest pain due to CAD Condition: Stable Referrals: YAZAN BEEBE MD (PCP) JUAN OCAMPO MD Jul 14, 2025 08:46
--- NOTE | 2025-07-14 08:50 | EKG ---
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
[2025-07-14 09:27] LABS: IMMATURE GRANULOCYTE ABSOLUTE 0.01 K/uL (0-1); NUCLEATED RED BLOOD CELLS 0.0 % (0.0-0.19); PLATELET COUNT (AUTO) 125 K/uL (130-400); RED BLOOD CELL COUNT(AUTO) 3.77 MIL/uL (4.50-6.20); RED CELL DISTRIBUTION WIDTH 14.6 % (11.0-15.5); WHITE BLOOD COUNT (AUTO) 6.4 K/uL (4.8-10.8)
[2025-07-14 09:35] LABS: CREATININE 2.1 mg/dL (0.5-1.3); GLOMERULAR FILTR. RATE CALC 30.0 mL/min (>90); GLUCOSE,RANDOM 106.0 mg/dL (70-105); SODIUM SERUM 147.0 mmol/L (136-145); UREA NITROGEN, BLOOD 36.0 mg/dL (7-18)
--- NOTE | 2025-07-14 10:04 | HMCIMG ---
EXAM: CR Chest, 1 View. CLINICAL HISTORY: CP COMPARISON: None provided. FINDINGS: LUNGS: The lungs show no infiltrate or other acute finding. PLEURAL SPACES: No evidence of pleural effusion or pneumothorax. MEDIASTINUM: Pacemaker leads overlie the right atrium and both ventricles. The cardiomediastinal silhouette is within normal limits. BONES: No aggressive appearing osseous lesion seen. IMPRESSION: No acute cardiopulmonary pathology is evident. /[place]
[2025-07-14] MEDS ORDERED: PoTASSium chloRIDE 20MEQ ER 20 MEQ ERTAB PO PRN ×2 (11:30)
[2025-07-14] MEDS ORDERED: PoTASSium chl 10% ELIXIR 20MEQ 20 MEQ/15 ML UDCUP PO PRN ×2 (11:30)
[2025-07-14] MEDS ORDERED: MAGNESIUM 2GM PREMIX 50ML 50 ML IV PRN (11:30)
[2025-07-14] MEDS: DEXTROSE 5 %-0.45 % NACL 1,000 ML IV SCH (11:35)
--- NOTE | 2025-07-14 11:43 | NUR ---
cardio consult arabella called pend call back
--- NOTE | 2025-07-14 11:53 | NUR ---
EKG TO BE COMPLETED Q 4 HRS X 3 STARTING 1500
[2025-07-14] MEDS ORDERED: CARV12.511 PO (12:04)
[2025-07-14] MEDS ORDERED: FAMO-290 PO (12:06)
[2025-07-14] MEDS ORDERED: ROSU20TA98 PO (12:08)
--- NOTE | 2025-07-14 12:09 | NUR ---
HOME MEDS ENTERED
--- NOTE | 2025-07-14 14:26 | CONS ---
[facility] CARDIOLOGY CONSULTATION NOTE Date Patient Seen: Jul 14, 2025 Time of Visit: 14:23 Requesting Physician: FEDE Clay Reason for Consultation: Chest pain Primary Smoking Tobacco Cutter Operator: Darrell Osullivan MD History of Present Illness: The patient is an 85-year-old male with past medical history of coronary artery disease, with WAYNE placement to the RCA and LAD done in January of 2021, repeat coronary angiogram done on 10/19/2024 identified mild to moderate nonobstructive CAD, with moderate ISR in the RCA, treated conservatively with medical therapy, repeat coronary angiogram done on 01/02/2025 identified severe ISR in the RCA (stent undersize) status post successful IVUS guided intravascular lithotripsy, balloon angioplasty, and drug coated balloon angioplasty (4 x 30 mm). He was admitted in February of 2025 with chest pain, ACS ruled out and symptoms determined to be secondary to uncontrolled hypertension. He also has a history of paroxysmal atrial fibrillation chronic anticoagulation with renally dosed Eliquis which was recently discontinued due to GI bleeding at [facility] in June 2025, conduction system disorder with history of dual-chamber permanent pacemaker placement, obstructive sleep apnea, chronic kidney disease stage 3, now normal left ventricular systolic function with an EF of 50-55% by prior echocardiogram in December 2023. He presented to [facility] Emergency Department with documented complaints of "chest pain", however he states his main concern is dizziness. He was recently discharged from [facility] (07/10-) with chest pain felt secondary to hypertension. His medications were adjusted with addition of carvedilol 12.5 mg PO BID in replacement of metoprolol succinate 50mg PO BID, and increase of nifedipine ER to 60mg total daily dosing. He notes blood pressures were 110-120s however with all day dizziness yesterday described as sensation of room spinning. He had SBP up to 180s this AM with worsening of the dizziness, and did describe mild 2-3/10 severity chest pain concomitantly. High sensitivity troponins negative x2, EKG shows V paced rhythm. He did not take nitroglycerin at home. He is chest pain free. Past Medical History: Coronary artery disease, history of coronary stenting, paroxysmal atrial fibrillation on chronic anticoagulation, history of congestive heart failure, history of permanent pacemaker implantation for sick sinus syndrome, history of prostate carcinoma, anemia, gastritis, obstructive sleep apnea, stage III chronic kidney [facility] 2022 and November 2023 with normal perfusion Echocardiogram May 2023 with LVEF of 50-55%, stage III diastolic dysfunction, [id number] dilated left atrium, repeat echo December 2023 with EF 50-55% High-resolution chest CT December 2023 bilateral pulmonary infiltrates in setting of atelectasis, interstitial fibrosis with bronchiectasis Lower extremity edema secondary to amlodipine 4 mm left lower lobe nodule, 1 cm right adrenal nodule and a 7 cm right renal cyst by CTA chest at [facility] (June 2025) GI bleed, DOAC Eliquis discontinued June 2025 Past Surgical History: Left heart catheterization January 2021 with 20% InStent RCA stenosis, 40% om stenosis, patent stents along the LAD with an 80% 2nd diagonal Permanent pacemaker implantation (WiFi Railronik Eluna 8 DR-T), last interrogation 06/20/2025 with an ET/AFib burden of 100%, controlled V rate, battery 35% remaining EGD on 04/26/2025 revealed a small 2 cm hiatal hernia, mild scattered gastritis s/p biopsies from antrum/body with normal duodenum that was biopsied. Colonoscopy on 04/26/2025 revealed severe diverticulosis in the entire colon with suspected diverticular bleeding, 3 mm ascending polyp s/p excisional biopsy. TURP Cataract surgery Family History: Hypertension Social History: lives with his spouse, independent with ambulation. The patient denies alcohol, tobacco, or illicit drug use.. Home Meds: Integra 62.5-62.5-40-3 MG Capsule 1 capsule between meals Orally Once a day. Doxycycline. NIFEdipine 20 MG Capsule as directed Orally. Clopidogrel Bisulfate 75 MG Tablet 1 tablet Orally Once a day. Pantoprazole Sodium 40 MG Tablet Delayed Release 1 tablet 1/2 to 1 hour before morning meal Orally Once a day. Eliquis 2.5 MG Tablet 1 tablet Orally Twice a day. Isosorbide Mononitrate ER 30 MG Tablet Extended Release 24 Hour 1 tablet in the morning Orally twice a day. Current Meds: Current Medications Medications Dose Ordered Sig/Autumn Start Time Stop Time Status Last Admin Dextrose/Sodium Chloride 1,000 ml @ 75 mls/hr [id number] 07/14/25 11:30 08/13/25 11:29 07/14/25 11:35 Potassium Chloride 100 ml @ 100 mls/hr AD PRN 10/26/25 11:30 08/13/25 11:29 Potassium Chloride 10 meq AD PRN 07/14/25 11:30 08/13/25 11:29 Potassium Chloride 10 meq AD PRN 07/14/25 11:30 08/13/25 11:29 Potassium Chloride 100 ml @ 100 mls/hr AD PRN 07/14/25 11:30 08/13/25 11:29 Potassium Chloride 20 meq AD PRN 07/14/25 11:30 08/13/25 11:29 Potassium Chloride 20 meq AD PRN 07/14/25 11:30 08/13/25 11:29 Magnesium Sulfate 50 ml @ 0 mls/hr PROTOCOL PRN 07/14/25 11:30 08/13/25 11:29 Review of Systems: dizziness, chest pain. Denies shortness of breath, orthopnea, PND lower extremity edema. No bleeding or bruising. No vision changes. No presyncope. No palpitations. Physical Examination: GENERAL: [No acute distress, acute and alert elderly male NECK: [Normal carotid upstrokes without bruits.] LUNGS: [Clear breath sounds bilaterally. On room air. No crackles. No wheezes, or rhonchi.] HEART: [Normal rate and rhythm. Normal S1 and S2 without murmurs, gallop or rub.] VASC: [Peripheral pulses +2 bilaterally.] ABD: [Soft, nontender, nondistended EXT: [No cyanosis or edema.] SKIN: [Warm, dry] NEURO: [Awake, alert, and oriented x3. No focal sensory or strength deficits noted.] Vital Signs (last 8hr) Date Time Temp Pulse Resp B/P (MAP) Pulse Ox O2 Delivery O2 Flow Rate FiO2 07/14/25 13:50 98.2 76 16 148/77 98 Room Air* 0 07/14/25 11:22 97.9 78 17 148/80 98 Room Air* 0 07/14/25 09:30 97.9 95 17 141/79 98 Room Air* 0 07/14/25 08:27 97.9 69 15 134/75 98 Room Air 0 Laboratory: [ ] Hematology Labs: Test 07/14/25 09:16 Range/Units White Blood Count 6.4 4.8-10.8 K/uL Red Blood Count 3.77 L 4.50-6.20 MIL/uL Hemoglobin 10.9 L 14.0-18.0 g/dL Hematocrit 31.5 L 42-54 % Mean Corpuscular Volume 83.6 79-99 fL Mean Corpuscular Hemoglobin 28.9 27.0-33.0 pg Mean Corpuscular Hemoglobin Concent 34.6 32.0-36.0 g/dL Red Cell Distribution Width 14.6 11.0-15.5 % Platelet Count 125 L 130-400 K/uL Mean Platelet Volume 11.1 H 7.5-10.5 fL Immature Granulocyte % (Auto) 0.2 0-1 % Neutrophils (%) (Auto) 62.5 40.0-77.0 % Lymphocytes (%) (Auto) 25.6 21.0-51.0 % Monocytes (%) (Auto) 8.1 3.0-13.0 % Eosinophils (%) (Auto) 3.0 0.0-8.0 % Basophils (%) (Auto) 0.6 0.0-5.0 % Neutrophils # (Auto) 4.0 1.8-7.7 K/uL Lymphocytes # (Auto) 1.6 1.0-4.8 K/uL Monocytes # (Auto) 0.5 0.1-1.0 K/uL Eosinophils # (Auto) 0.19 0.00-0.70 K/uL Basophils # (Auto) 0.04 0.00-0.20 K/uL Absolute Immature Granulocyte (auto 0.01 0-1 K/uL Nucleated Red Blood Cells 0.0 0.0-0.19 % Chemistry Labs: Test 07/14/25 10:06 07/14/25 09:16 Range/Units Troponin I High Sensitivity 26 4-75 ng/L Sodium Level 147 H 136-145 mmol/L Potassium Level 3.9 3.5-5.1 mmol/L Chloride Level 111 101-111 mmol/L Carbon Dioxide Level 29 21-32 mmol/L Blood Urea Nitrogen 36 H 7-18 mg/dL Creatinine 2.1 H 0.5-1.3 mg/dL Glomerular Filtration Rate Calc 30 >90 mL/min Random Glucose 106 H 70-105 mg/dL Total Calcium 8.8 8.5-10.1 mg/dL Magnesium Level 2.60 H 1.80-2.40 mg/dL B-Type Natriuretic Peptide 136 H 0-100 pg/mL Diagnostics / Radiology: IMPRESSION: No acute cardiopulmonary pathology is evident. /[place] DICTATED BY: RON ST Jr., MD DATE: 07/14/25 1104 Assessment: Dizziness Chest pain in setting of hypertensive urgency Coronary artery disease, left heart catheterization in December 2024 severe RCA ISR status post IVL/PRA/DCB pAF on chronic AC, DOAC Eliquis discontinued due to GI bleeding (June 2025) Sick sinus syndrome s/p DC Biotronik PPM, less interrogation 06/2025 normal device function CHANDRA Frequent hospitalizations for chest pain ([facility] October, April, June 2025) History of edema on amlodipine, dizziness with ranolazine Plan: Recent change to carvedilol 12.5 mg PO BID in replacement of metoprolol succinate 50mg PO BID, and increase of nifedipine ER to 60mg total daily dosing with resultant dizziness. He reports feeling better on lower dose nifedipine. Reports ambulatory BPs range 110s to 180s over prior 2 days. Recommend we obtain orthostatic vital signs and if negative, resume the carvedilol however reduce nifedipine dosage. Continuation of the imdur 60mg TDD. Continuation of his home DAPT with aspirin and clopidogrel Defer DOAC due to recent GI bleed June 2025 SEAN GUILLAUME DO Jul 14, 2025 14:26
--- NOTE | 2025-07-14 16:33 | EKG ---
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
--- NOTE | 2025-07-14 16:49 | NUR ---
[facility] currently unavailable
[2025-07-14 17:29] VITALS: O2SAT 96
[2025-07-14 17:30] VITALS: BP 166/75; PULSE 74; RESP 18; TEMP 97.6
[2025-07-14 20:00] VITALS: BP 175/89; PULSE 70; RESP 20; TEMP 97.6
[2025-07-14 20:31] VITALS: BP_SYST 174; BP_SYST 179; BP_SYST 182; BP_DIAS 90; BP_DIAS 96; BP_DIAS 98; PULSE 69; RESP 20; TEMP 97.6
[2025-07-15] VITALS: BP_SYST 157; BP_SYST 159; BP_DIAS 88; BP_DIAS 95; PULSE 105; PULSE 70; RESP 18; TEMP 97.8; TEMP 98.5
[2025-07-15 04:00] VITALS: BP 170/89; PULSE 89; RESP 18; TEMP 98
--- NOTE | 2025-07-15 04:00 | HP ---
ADMITTING HISTORY AND PHYSICAL CHIEF COMPLAINT: Dizziness. Chest pain. HISTORY OF PRESENT ILLNESS: He is an 85-year-old gentleman, has a history of coronary artery disease with stent placements done starting in 2020. The patient has multiple cardiac caths including the recent one is 01/02/2025. The patient's metoprolol was changed to carvedilol and nifedipine was increased to 60 mg recently. The patient describes increasing dizziness and the patient's blood pressure is fluctuating. The patient is also complaining of varying blood pressures. The patient is hospitalized with dizziness, chest pain with history of coronary artery disease for further cardiac workup. PAST MEDICAL HISTORY: Significant for as above, history of coronary artery disease, atrial fibrillation, congestive heart failure, anemia, gastritis, COPD, sleep apnea, chronic kidney disease, history of prostate cancer. PAST SURGICAL HISTORY: Significant for TURP, cataract surgery and cardiac catheterization and stent placements. SOCIAL HISTORY: No history of smoking, alcohol, substance use. FAMILY HISTORY: Noncontributory. MEDICATIONS: The patient takes nifedipine 60 mg, Plavix 75 mg, pantoprazole 40 mg, Eliquis 2.5 mg two times a day, isosorbide 30 mg 2 times a day, Integra. FAMILY HISTORY: Noncontributory. REVIEW OF SYSTEMS: HEENT: Dizziness. CARDIOVASCULAR: Chest pain, shortness of breath. RESPIRATORY: Shortness of breath. GASTROINTESTINAL: Nausea. GENITOURINARY: Negative. MUSCULOSKELETAL: Joint pains. PHYSICAL EXAMINATION: GENERAL: The patient is awake, alert, oriented to person, place and time. VITAL SIGNS: Significant for blood pressure 148/70, pulse 76, respirations 16, afebrile. HEENT: Pupils are equal. Mucous membranes appear to be dry. NECK: Supple. LUNGS: Mostly decreased breath sounds. No wheezing at this time. HEART: Irregularly irregular. ABDOMEN: Soft, nontender. EXTREMITIES: Noted. NEUROLOGICAL: No focal deficits noted. LABORATORY DATA: Hemoglobin 10.9, troponin is 26, platelets 125, potassium 3.9, creatinine is 2.1. ASSESSMENT AND PLAN: 1. Dizziness, chest pain, hypertension. Medications adjusted, carvedilol and nifedipine. 2. Coronary artery disease, chest pain. 3. Sleep apnea, COPD. Continue with nebulizer treatments and CPAP at nighttime. 4. The patient is on aspirin and Plavix at this time. The patient's care will be transferred to Dr. Johnson, patient's primary. TID: [id number] RECEIPT: [id number]
[2025-07-15 04:34] VITALS: BP 154/74; PULSE 70
[2025-07-15 05:12] LABS: IMMATURE GRANULOCYTE ABSOLUTE 0.02 K/uL (0-1); NUCLEATED RED BLOOD CELLS 0.0 % (0.0-0.19); PLATELET COUNT (AUTO) 134 K/uL (130-400); RED BLOOD CELL COUNT(AUTO) 3.71 MIL/uL (4.50-6.20); RED CELL DISTRIBUTION WIDTH 14.3 % (11.0-15.5); WHITE BLOOD COUNT (AUTO) 7.1 K/uL (4.8-10.8)
[2025-07-15 05:25] LABS: CREATININE 1.9 mg/dL (0.5-1.3); GLOMERULAR FILTR. RATE CALC 34.0 mL/min (>90); GLUCOSE,RANDOM 103.0 mg/dL (70-105); SODIUM SERUM 146.0 mmol/L (136-145); UREA NITROGEN, BLOOD 31.0 mg/dL (7-18)
--- NOTE | 2025-07-15 07:34 | PN ---
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 Patient is concerned about his blood pressure. No JVD, no rales, nonlabored respiration, normal S1 and S2, no S3 or murmur, no edema, oriented and alert and appropriate. Impression and plan: Patient is noted to have low normal potassium on two antihypertensive medications with inadequate blood pressure control; despite mildly elevated creatinine I will attempt treatment with aldosterone antagonist and simply observe potassium and renal function carefully. 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 Vitals/Labs Vital Signs Date Time Temp Pulse Resp B/P (MAP) Pulse Ox O2 Delivery O2 Flow Rate FiO2 07/15/25 04:34 70 154/74 07/15/25 04:00 98.1 18 97 Room Air 07/14/25 20:00 0 21 Laboratory Tests 07/14/25 09:16 07/15/25 04:33 Medications Current Medications Dextrose/Sodium Chloride 1,000 ml @ 75 mls/hr [id number] IV Last administered on 07/15/25at 00:19; Start 07/14/25 at 11:30; Stop 08/13/25 at 11:29 Potassium Chloride 100 ml @ 100 mls/hr AD PRN IV; Start 07/14/25 at 11:30; Stop 08/13/25 at 11:29 Potassium Chloride 10 meq AD PRN PO; Start 07/14/25 at 11:30; Stop 08/13/25 at 11:29 Potassium Chloride 10 meq AD PRN PO; Start 07/14/25 at 11:30; Stop 08/13/25 at 11:29 Potassium Chloride 100 ml @ 100 mls/hr AD PRN IV; Start 07/14/25 at 11:30; Stop 08/13/25 at 11:29 Potassium Chloride 20 meq AD PRN PO; Start 07/14/25 at 11:30; Stop 08/13/25 at 11:29 Potassium Chloride 20 meq AD PRN PO; Start 07/14/25 at 11:30; Stop 08/13/25 at 11:29 Magnesium Sulfate 50 ml @ 0 mls/hr PROTOCOL PRN IV; Start 07/14/25 at 11:30; Stop 08/13/25 at 11:29 Aspirin 81 mg DAILY PO; Start 07/15/25 at 09:00; Stop 08/14/25 at 08:59 Apixaban 2.5 mg BID PO; Start 07/14/25 at 21:00; Stop 07/14/25 at 16:14; Status DC Isosorbide Mononitrate 60 mg DAILY PO; Start 07/15/25 at 09:00; Stop 08/14/25 at 08:59 Clopidogrel Bisulfate 75 mg DAILY PO; Start 07/15/25 at 09:00; Stop 08/14/25 at 08:59 Carvedilol 12.5 mg BID PO Last administered on 07/14/25at 20:42; Start 07/14/25 at 21:00; Stop 08/13/25 at 20:59 Nifedipine 60 mg DAILY PO; Start 07/15/25 at 09:00; Stop 08/14/25 at 08:59 Pantoprazole Sodium 40 mg DAILY PO; Start 07/15/25 at 09:00; Stop 08/14/25 at 08:59 Atorvastatin Calcium 40 mg DAILY PO; Start 07/15/25 at 09:00; Stop 08/14/25 at 08:59 Labetalol HCl 10 mg Q6H PRN IV Last administered on 07/15/25at 03:42; Start 07/14/25 at 20:00; Stop 08/13/25 at 19:59 ROSARIO HUSTON MD Jul 15, 2025 07:34
[2025-07-15 08:00] VITALS: BP 154/87; PULSE 70; RESP 16; TEMP 97.5
--- NOTE | 2025-07-15 08:14 | NUR ---
MD ALEXSANDER BEEBE AT BEDSIDE. INFORMED DR. BEEBE THAT CORPORATE COMPLIANCE MANAGER HAS NOT SIGNED OFF AT THIS TIME. PER DR. BEEBE TO DISCHARGE PT AND FOLLOW UP IN HIS OFFICE TOMORROW.
[2025-07-15] MEDS: ASPIRIN 81 MG EC TAB PO SCH (08:26)
[2025-07-15] MEDS: ISOSORBIDE MONO 60MG SR TAB PO SCH (08:27)
[2025-07-15 08:28] VITALS: O2SAT 97
--- NOTE | 2025-07-15 09:41 | NUR ---
DCP:HOME Pt currently lives at home with his Maddi Johnson . Pt does not have any DME, home health, or provider services. pt states that he can complete ADLs independently. PCP is Dr. Johnson and uses [facility] for any RX needs. At PA pt will want to go home and family can assist with transportation. Addendum: 07/15/25 at 0943 by MILTON ACOSTA SS Amended: Links added.
--- NOTE | 2025-07-15 10:20 | NUR ---
DISCHARGE DC'D IV. NO COMPLICATIONS. REMOVED TELE MONITOR. PT DENIES PAIN OR DISCOMFORT AT THIS GALLO. PT AWARE OF FOLLOW UP WITH DR. BEEBE 07/16/25 AT 9:15AM. AWARE TO FOLLOW UP WITH CONVERTING TECHNICIAN WITHIN 1 WEEK. NO QUESTIONS AT THIS TIME.
== END 2025-07-15 12:10 | disposition home or self-care (01) ==
LOC: EDH 08:14 → EDHIP 10:58 → 3BH 17:30
PROVIDERS: ADMIT Internal Medicine; ATTEND Internal Medicine
DX: R42 Dizziness and giddiness (principal); R07.89 Other chest pain; I13.0 Hypertensive heart and chronic kidney disease with heart failure and stage 1 through stage 4 chronic kidney disease, or unspecified chronic kidney disease; I16.0 Hypertensive urgency; N18.30 Chronic kidney disease, stage 3 unspecified; N17.9 Acute kidney failure, unspecified; E78.00 Pure hypercholesterolemia, unspecified; E87.0 Hyperosmolality and hypernatremia; G47.30 Sleep apnea, unspecified; I25.10 Atherosclerotic heart disease of native coronary artery without angina pectoris; R60.0 Localized edema; Z79.01 Long term (current) use of anticoagulants; Z79.899 Other long term (current) drug therapy; Z79.02 Long term (current) use of antithrombotics/antiplatelets; Z95.0 Presence of cardiac pacemaker; Z79.82 Long term (current) use of aspirin
CPT/HCPCS: 96361 ×2; 99285; 83735 ×2; 84484 ×3; 80048 ×2; 83880; 85025 ×2; 36415 ×2; 71045; 93005 ×2; 96374; G0378 ×25; J7042

== ENCOUNTER → 2025-09-10 | Outpatient (CLI) | payer OTHER ==
[~2025-09-10] MED LIST changes: -APIX2.5T PO; -ATOR40TA69 PO; +CARV12.511 PO; +FAMO-290 PO; -FERR-72 PO; -METO25TA6 PO; -MULT-1203 PO; -NITR0.4T50 SL; +ROSU20TA98 PO
--- NOTE | 2025-09-11 13:30 | HMCIMG ---
DIGITAL bilateral DIAGNOSTIC MAMMOGRAM Technique: The digital mammographic examination of both breasts in craniocaudal, mediolateral oblique views along with CAD was obtained. History: This is a 85 years year-old male with right breast pain. Patient has no family history of breast cancer. Reference:Baseline. Breast composition: Breast composition B: There are scattered areas of fibroglandular density. Finding: The digital mammographic examination of both breasts in craniocaudal and mediolateral oblique view along with CAD demonstrates mildly dense more pronounced on the right subareolar region. There is a right axilla pacemaker in place.. There is no evidence of any dendritic mass, cluster microcalcification or architectural distortion. The retromammary fat appears to be normal. IMPRESSION: NO RADIOGRAPHIC EVIDENCE OF MALIGNANT CHANGES. WE WOULD RECOMMEND ANNUAL FOLLOW UP WITH TOMOSYNTHESIS UNLESS OTHERWISE CLINICALLY INDICATED. FINAL ASSESSMENT: ACR: BI-RAD- 2. Benign Finding. NOTE: IF A WORK-UP OF THIS PATIENT LEADS TO A BIOPSY, PLEASE FORWARD A COPY OF THE PATHOLOGY REPORT TO OUR OFFICE REQUIRED BY [facility] EFFECTIVE JUNE 19, 1994. A NEGATIVE MAMMOGRAM SHOULD NOT PRECLUDE BIOPSY OF A CLINICALLY PALPABLE SUSPICIOUS MASS, 10% OF BREAST CANCERS ARE MAMMOGRAPHICALLY OCCULT. THIS MAMMOGRAPHY FACILITY IS FULLY ACCREDITED BY THE FOOD AND DRUG ADMINISTRATION (FDA). THANK YOU FOR THIS REFERRAL.
== END | disposition home or self-care (01) ==
LOC: RAH 08:00
PROVIDERS: ATTEND Internal Medicine
DX: N64.4 Mastodynia (principal); R92.323 Mammographic fibroglandular density, bilateral breasts; Z95.0 Presence of cardiac pacemaker
CPT/HCPCS: 77066